=== PATIENT | female | born 1965 | race Caucasian/White ===

== ENCOUNTER 2020-11-13 01:18 | Inpatient (IN) ==
[2020-11-13] MEDS ORDERED: ONDANSETRON 4 MG/2 ML VIAL IV PRN ×2 (01:34→06:04)
[2020-11-13] MEDS: HYDROCODONE/APAP 7.5/325MG TABLET PO PRN ×2 (02:58→13:09)
[2020-11-13] MEDS ORDERED: HYDROCODONE/APAP 7.5/325MG TABLET PO ONE (02:59)
[2020-11-13] MEDS ORDERED: POTASSIUM CHLORIDE 20 MEQ PACKET PO PRN (06:04)
[2020-11-13] MEDS ORDERED: ONDANSETRON 4 MG ODT TABLET SL PRN (06:04)
[2020-11-13] MEDS ORDERED: POLYETHYLENE GLYCOL 3350 17 GM PACKET PO PRN (06:04)
[2020-11-13] MEDS ORDERED: traMADol 50 MG TABLET PO PRN (06:04)
[2020-11-13] MEDS ORDERED: DEXTROSE 50% 50 ML VIAL IV PRN (06:04)
[2020-11-13] MEDS ORDERED: DEXTROSE 31 GM ORAL.SUSP PO PRN (06:04)
[2020-11-13] MEDS ORDERED: BISACODYL 10 MG SUPP.RECT PR PRN (06:04)
[2020-11-13] MEDS ORDERED: hydrALAZINE 20 MG/ML VIAL IV PRN (06:04)
[2020-11-13] MEDS ORDERED: ACETAMINOPHEN 650 MG/65 ML BAG IV PRN (06:04)
--- NOTE | 2020-11-13 06:09 | Internal Med History&Physical ---
HPI History of Present Illness Patient information: Note initiated : 11/13/20 at 6:09 am Service Date, if different from initiated Date: [] Patient: Patricia Guerra a 55 y/o F admitted on 11/13/20 for Diabetic Right Foot Ulcer. Chief Complaint: Right great toe pain History of present illness: Ms. Guerra is a 55 year old F known diabetic who is currently homeless and living in a tent. Patient presented to [facility] ER for worsening right foot and big toe pain after she stepped on a glass sometime ago. She does not have access to protective footwear and moves around in flip-flops. She feels she stubbed on something that started the pain and swelling of the feet. She is known diabetic but poorly controlled and does not take any medications. She follows up with [facility] intermittently. Over the last couple of days pain and swelling has remarkably worsened with bluish discoloration of toe significance redness involving the foot. Initial work-up in the ER was consistent with severely swollen right great toe along with open wound on the dorsal aspect, sodium 126, potassium 3, creatinine 1.4, blood sugar 203 and a white count of 18.1. Patient was started on Rocephin after cultures were drawn. Due to lack of availability of beds hospitalist service was consulted at [facility] for transfer and further management. I received a phone description as above from Jonathan Bender ER physician at [facility]. Patient received at [facility] in stable state. At the time of my evaluation patient is alert and oriented. She endorses history as above. She denies fever, diarrhea, shaking chills, headache, photophobia. She extremely unkempt and appears disheveled. Review of systems 10 point review system was performed and is negative except for ones discussed above MEDS/ALLERGIES Home Medications and Allergies Home Medications Medication Instructions Recorded Confirmed Type No Known Home Meds 11/13/20 11/13/20 History Allergies Allergy/AdvReac Type Severity Reaction Status Date / Time No Known Drug Allergies Allergy Verified 11/13/20 03:07 EXAM Constitutional Vitals: Temp Pulse Resp BP Pulse Ox 98.7 F 107 H 16 135/80 95 11/13/20 02:32 11/13/20 02:32 11/13/20 02:32 11/13/20 02:32 11/13/20 02:32 Disheveled and unkempt Head normocephalic Oral cavity moist No ear or nose discharge Eye no subconjunctival pallor, movement symmetrical S1-S2 occasionally irregular Nonlabored breathing Nondistended pendulous nontender abdomen Right great toe dusky discoloration with erythema extending to midfoot. Dorsalis pedis pulse felt, left foot hyperkeratotic with callus and ulceration plantar aspect Skin otherwise no suspicious lesion Psych anxious but no hallucination Neuro normal higher function on limited neuro exam DATA Data Completed and Pending Labs: Labs from last 24 hours 11/13/20 11/13/20 05:08 05:08 WBC Pending RBC Pending Hgb Pending Hct Pending MCV Pending MCH Pending MCHC Pending RDW Pending Plt Count Pending MPV Pending Neut % (Auto) Pending Sodium Pending Potassium Pending Chloride Pending Carbon Dioxide Pending Anion Gap Pending BUN Pending Creatinine Pending GFR Calculation Pending Glucose Pending Uric Acid Pending Calcium Pending Phosphorus Pending Magnesium Pending Total Bilirubin Pending Direct Bilirubin Pending GGT Pending AST Pending ALT Pending Alkaline Phosphatase Pending Lactate Dehydrogenase Pending Total Protein Pending Albumin Pending Globulin Pending Albumin/Globulin Ratio Pending Triglycerides Pending A/P Narrative A/P Narrative: * Diabetic right foot cellulitis/ulcer-wound care/podiatry consult. * Severe sepsis with endorgan dysfunction White count 18.4. Start antibiotic coverage on Rocephin/vancomycin. Sepsis management guidelines * Mild GENARO top diabetic kidney disease-creatinine 1.4 * Hyponatremia check urine serum osmolarity * Hypokalemia-replace as indicated * Poorly controlled diabetes-start sliding scale insulin/CC diet * Self-care deficit/homelessness-PT OT/case management consultation for safe discharge plan * Prophylaxis Heparin Plan * Inpatient admission * Antibiotic coverage * Podiatry/wound care consult * Monitor renal function * Urine serum osmolality * Electrolyte replacement * Pre-existing medical condition management home medication * PT OT nutrition support Time Spent With Patient Time: Total time spent is greater than 50% in coordination of care (as documented) at patient's floor/unit and/or counseling patient: QUALITY VTE Deep Vein Thrombosis/Pulmonary Embolism Present on Admission: No
[2020-11-13] MEDS ORDERED: VANCOMYCIN PER PHARMACY IV SCH (06:15)
[2020-11-13 06:40] LABS: Basophils # (Auto) 0.04 K/mcL (0.00-0.20); Basophils % (Auto) 0.3 % (0.0-2.0); Eosinophils # (Auto) 0.33 K/mcL (0.00-0.70); Eosinophils % (Auto) 2.1 % (0.0-7.0); Hematocrit 32.9 % (36.0-48.0); Hemoglobin 11.4 g/dL (12.0-15.0); Lymphocytes # (Auto) 1.22 K/mcL (1.50-4.80); Lymphocytes % (Auto) 7.9 % (15.0-49.0); Mean Cell Volume 95.6 fL (80.0-100.0); Mean Corpuscular HGB Conc 34.7 g/dL (31.0-36.0); Mean Platelet Volume 10.6 fL (7.4-10.4); Monocytes # (Auto) 1.66 K/mcL (0.10-0.90); Monocytes % (Auto) 10.8 % (1.0-12.0); Neutrophils % (Auto) 78.9 % (38.0-78.0); Platelet Count 242 K/mcL (140-440); RBC 3.44 M/mcL (4.00-5.20); Red Cell Distribution Width 11.9 % (11.5-14.5); WBC 15.4 K/mcL (4.5-11.0)
[2020-11-13] MEDS: 0.9 % SODIUM CHLORIDE 1,000 ML IV SCH (06:53)
[2020-11-13] MEDS: INSULIN GLARGINE, HUMAN 1 UNIT/0.01 ML SQ SCH (08:21)
[2020-11-13] MEDS: INSULIN LISPRO 1 UNIT/0.01 ML UNIT SQ SCH ×4 (08:21→21:24)
[2020-11-13] MEDS: CYANOCOBALAMIN (VITAMIN B-12) 500 MCG TABLET PO SCH ×2 (08:22→21:24)
[2020-11-13] MEDS: cefTRIAXone 2 GM in DEXTROSE 5% IN WATER 50 ML IV SCH (08:22)
[2020-11-13] MEDS: THIAMINE 100 MG TABLET PO SCH (08:22)
[2020-11-13] MEDS: sitaGLIPtin 100 MG TABLET PO SCH (08:22)
[2020-11-13] MEDS: MULTIVIT,THER IRON,CA,FA & MIN 1 TABLET PO SCH (08:22)
[2020-11-13] MEDS: HEPARIN 5,000 UNIT/ML VIAL SQ SCH ×2 (08:22→21:23)
[2020-11-13 08:31] LABS: ALT/SGPT 35 U/L (<40); AST/SGOT 86 U/L (<32); Albumin 2.3 gm/dL (3.2-5.2); Albumin/Globulin Ratio 0.5 (1.0-2.3); Alkaline Phosphatase 193 U/L (39-117); Bilirubin,Direct 0.5 mg/dL (<0.3); Bilirubin,Total 0.7 mg/dL (0.1-1.0); Blood Urea Nitrogen 20 mg/dL (6-20); Calcium 7.7 mg/dL (8.6-10.4); Carbon Dioxide 22 mmol/L (22-30); Chloride 95 mmol/L (96-108); Globulin 4.2 gm/dL (2.2-3.7); Glomerular Filtration Rate 57; Glucose 186 mg/dL (70-105); Lactate Dehydrogenase 259 U/L (135-225); Phosphorous 3.2 mg/dL (2.5-4.5); Triglycerides 193 mg/dL (<150)
--- NOTE | 2020-11-13 09:50 | XRay Report ---
CLINICAL INFORMATION: cellulitis, osteo COMPARISON: None. FINDINGS: No specific radiographic evidence for osteomyelitis. Slight hallux valgus and minimal hammertoe deformities second through fifth digits noted. Mild degenerative change seen in the second through fifth interphalangeal joints. Remote avulsion fracture of the tip of the medial malleolus noted. There is spurring the anterior tibial plafond and the adjacent anterior talar neck. Minor spurring of the plantar tendon insertion on calcaneus noted. Diffuse soft tissue swelling present within the forefoot and midfoot IMPRESSION: 1. Diffuse forefoot and midfoot soft tissue swelling compatible cellulitis. No specific evidence for osteomyelitis. 2. Mild hallux valgus and hammertoe deformities first through fifth digits. 3. Spurring from the anterior tibial plafond and the adjacent anterior cortex talar neck predisposing to anterior impingement on ankle dorsiflexion. 4. Mild degeneration second through fifth interphalangeal joints Interpreted and Authenticated by: Fermín Tai 11/13/20
[2020-11-13] MEDS: VANCOMYCIN 1,250 MG in 0.9 % SODIUM CHLORIDE 500 ML IV SCH ×2 (10:03→21:24)
--- NOTE | 2020-11-13 12:45 | Internal Med Progress Note ---
SUBJECTIVE Subjective Patient information: Note initiated : 11/13/20 at 12:39 pm Service Date, if different from initiated Date: [] Patient: Patricia Guerra 55 y/o F admitted on 11/13/20 for Diabetic Right Foot Ulcer. Chief Complaint: [] Interval history: History of present illness: Ms. Guerra is a 55 year old F known diabetic who is currently homeless and living in a tent. Patient presented to [facility] ER for worsening right foot and big toe pain after she stepped on a glass sometime ago. She does not have access to protective footwear and moves around in flip-flops. She feels she stubbed on something that started the pain and swelling of the feet. She is known diabetic but poorly controlled and does not take any medications. She follows up with [facility] intermittently. Over the last couple of days pain and swelling has remarkably worsened with bluish discoloration of toe significance redness involving the foot. Initial work-up in the ER was consistent with severely swollen right great toe along with open wound on the dorsal aspect, sodium 126, potassium 3, creatinine 1.4, blood sugar 203 and a white count of 18.1. Patient was started on Rocephin after cultures were drawn. Due to lack of availability of beds hospitalist service was consulted at [facility] for transfer and further management. I received a phone description as above from Jonathan Bender ER physician at [facility]. Patient received at [facility] in stable state. At the time of my evaluation patient is alert and oriented. She endorses history as above. She denies fever, diarrhea, shaking chills, headache, photophobia. She extremely unkempt and appears disheveled. 11/14 Constitutional Vitals: Vital Signs Temp Pulse Resp BP Pulse Ox 97.7 F 93 H 20 124/70 97 11/13/20 11:47 11/13/20 11:47 11/13/20 11:47 11/13/20 11:47 11/13/20 11:47 Period Temp Pulse Resp BP Sys/Patel Pulse Ox Last 24 Hr 97.7 F-98.7 F 92-107 16-20 117-135/70-80 95-97 Intake and Output 11/12/20 11/13/20 11/13/20 21:59 05:59 13:59 Intake Total 800 Output Total 200 Balance -200 800 Weight 83.234 kg Intake & Output: Intake & Output 11/12/20 11/13/20 11/13/20 21:59 05:59 13:59 Intake Total 800 Output Total 200 Balance -200 800 Weight 83.234 kg Intake: Oral 800 Output: Void Amount 200 Other: Meal Lunch Percent of Meal Consumed 100% Feeding Ability Independent Exam: general: Alert, Awake, No acute Distress Eyes/N/T: EOMI, Head/Neck: neck supple, CV: No murmurs, Pulm: Clear b/l, no wheezing/rhonchi/rales Abd: soft, nontender, +BS x4 Ext: no clubbing/cyanosis/edema. right great toe in dressings Neuro: Alert, no focal deficits, moves all extremities, Skin: warm/dry OBJ DATA Labs CBC & Chem 7: 11/13/20 05:08 11/13/20 05:08 Labs: Abnormal Lab Results 11/13/20 11/13/20 11/13/20 05:08 05:08 05:08 WBC RBC Hgb Hct MPV Neut % (Auto) Lymph % (Auto) Lymph # (Auto) [place] # (Auto) Absolute Neutrophils ESR 90 H Sodium Potassium Chloride Glucose Calcium Magnesium Direct Bilirubin GGT AST Alkaline Phosphatase Lactate Dehydrogenase C-Reactive Protein 22.80 H Albumin Globulin Albumin/Globulin Ratio Triglycerides Procalcitonin 1.45 H 11/13/20 11/13/20 05:08 05:08 WBC 15.4 H RBC 3.44 L Hgb 11.4 L Hct 32.9 L MPV 10.6 H Neut % (Auto) 78.9 H Lymph % (Auto) 7.9 L Lymph # (Auto) 1.22 L [place] # (Auto) 1.66 H Absolute Neutrophils 12.16 H ESR Sodium 129 L Potassium 2.9 L* Chloride 95 L Glucose 186 H Calcium 7.7 L Magnesium 1.3 L Direct Bilirubin 0.5 H GGT 438 H AST 86 H Alkaline Phosphatase 193 H Lactate Dehydrogenase 259 H C-Reactive Protein Albumin 2.3 L Globulin 4.2 H Albumin/Globulin Ratio 0.5 L Triglycerides 193 H Procalcitonin Meds: Medications Acetaminophen (Acetaminophen 325 Mg Tablet) 650 mg PO Q4-6HP PRN; Protocol PRN Reason: Per Pain Protocol/Fever > 101 Hydrocodone Bitart/Acetaminophen (Hydrocodone/Apap 7.5/325mg Tablet) 1 tab PO Q4HP PRN; Protocol PRN Reason: Per Pain Protocol Last Admin: 11/13/20 02:58 Dose: 1 tab Documented by: Bisacodyl (Bisacodyl 10 Mg Supp.Rect) 10 mg TN Q2-3DAYS PRN PRN Reason: Constipation Cyanocobalamin (Cyanocobalamin (Vitamin B-12) 500 Mcg Tablet) 1,000 mcg PO BID [facility] Stop: 11/17/20 21:01 Last Admin: 11/13/20 08:22 Dose: 1,000 mcg Documented by: Dextrose (Dextrose 50% 50 Ml Vial) 0 ml IV UD PRN PRN Reason: Hypoglycemia Diagnostic Test (Pha) (Accu-Chek 1 Each Strip) 1 each FS ACHS [facility] Last Admin: 11/13/20 11:23 Dose: 1 each Documented by: Diagnostic Test (Pha) (Accu-Chek 1 Each Strip) 1 each FS ACHS [facility] Last Admin: 11/13/20 11:24 Dose: Not Given Documented by: Glucose (Dextrose 31 Gm Oral.Susp) 15 gm PO PRN PRN PRN Reason: Hypoglycemia Heparin Sodium (Porcine) (Heparin 5,000 Unit/Ml Vial) 5,000 unit SQ Q12 [facility] Last Admin: 11/13/20 08:22 Dose: 5,000 unit Documented by: Hydralazine HCl (Hydralazine 20 Mg/Ml Vial) 10 mg IV Q4-6HP PRN PRN Reason: Hypertension Acetaminophen (Ofirmev) 650 mg in 65 mls @ 130 mls/hr IV Q6HP PRN; Protocol PRN Reason: Per Pain Protocol/Fever > 101 Magnesium Sulfate (Magnesium Sulfate) 2 gm in 50 mls @ 50 mls/hr IV UD PRN PRN Reason: MG = or < 1.7 Sodium Chloride (Sodium Chloride 0.9%) 1,000 mls @ 50 mls/hr IV .Q20H [facility] Stop: 11/15/20 18:14 Last Admin: 11/13/20 06:53 Dose: 50 mls/hr Documented by: Ceftriaxone Sodium 2 gm/ (Dextrose) 50 mls @ 100 mls/hr IV DAILY [facility]; Protocol Last Admin: 11/13/20 08:22 Dose: 100 mls/hr Documented by: Vancomycin HCl 1,250 mg/ (Sodium Chloride) 500 mls @ 333.3 mls/hr IV Q12H [facility] Last Admin: 11/13/20 10:03 Dose: 333.3 mls/hr Documented by: Insulin Glargine (Insulin Glargine, Human 1 Unit/0.01 Ml) 10 unit SQ DAILY [facility] Last Admin: 11/13/20 08:21 Dose: 10 units Documented by: Insulin Human Lispro (Insulin Lispro 1 Unit/0.01 Ml Unit) 0 unit SQ ACHS [facility]; Protocol Last Admin: 11/13/20 11:27 Dose: 2 units Documented by: Iron Carb/Multivit/[place]/Folic Acid (Multivit,Ther Iron,Ca,Fa & Min 1 Tablet) 1 tab PO DAILY [facility] Last Admin: 11/13/20 08:22 Dose: 1 tab Documented by: Melatonin (Melatonin 3 Mg Tablet) 3 mg PO HSP PRN PRN Reason: Insomnia Ondansetron HCl (Ondansetron 4 Mg Odt Tablet) 4 mg SL Q4-6HP PRN; Protocol PRN Reason: Nausea And Vomiting Ondansetron HCl (Ondansetron 4 Mg/2 Ml Vial) 4 mg IV Q4-6HP PRN; Protocol PRN Reason: Nausea And Vomiting Pneumococcal Polyvalent Vaccine (Pneumococcal 23-Trupti P-Sac Vac 0.5 Ml Syringe) 0.5 ml IM .ONCE ONE Stop: 11/14/20 10:01 Polyethylene Glycol (Polyethylene Glycol 3350 17 Gm Packet) 17 gm PO DAILYP PRN PRN Reason: Constipation Potassium Chloride (Potassium Chloride 20 Meq Packet) 40 meq PO DAILYP PRN PRN Reason: K+ < 3.5 Last Admin: 11/13/20 08:37 Dose: 40 meq Documented by: Senna/Docusate Sodium (Sennosides/Docusate Sodium 1 Tab Tablet) 1 tab PO HS [facility] Sitagliptin Phosphate (Sitagliptin 100 Mg Tablet) 100 mg PO DAILY [facility] Last Admin: 11/13/20 08:22 Dose: 100 mg Documented by: Sodium Chloride (0.9 % Sodium Chloride 10 Ml Syringe) 10 ml IV Q8 GUILLERMO Thiamine HCl (Thiamine 100 Mg Tablet) 100 mg PO DAILY [facility] Last Admin: 11/13/20 08:22 Dose: 100 mg Documented by: Vancomycin HCl (Vancomycin Per Pharmacy) 1 order IV UD [facility]; Protocol A/P Narrative A/P Narrative: A: *Diabetic right foot cellulitis/ulcer: *severe sepsis with endorgan dysfunction: -White count 18.4. *GENARO with diabetic kidney disease (unknown baseline): *Hyponatremia: *Hypokalemia: *DM, Poorly controlled diabetes -A1c 9.7 *Self-care deficit/homelessness-PT OT/case management consultation for safe discharge plan Plan: -Antibiotic coverage -Ata/wound care consult -Monitor renal function -Urine serum osmolality -Electrolyte replacement -SSI -PT OT nutrition support -ppx: heparin Time Spent With Patient Time: Total time spent is greater than 50% in coordination of care (as do cumented) at patient's floor/unit and/or counseling patient: QUALITY VTE Deep Vein Thrombosis/Pulmonary Embolism Present on Admission: No
[2020-11-13] MEDS: MAGNESIUM SULFATE 2 GM/50 ML BAG IV PRN (13:01)
--- NOTE | 2020-11-13 13:38 | General Surgery Consult Note ---
HPI Consult Narrative Chief complaint: SEPSIS, CSSSI Right great toe. Uncontrolled DM Reason for consult: Evaluation and treatment. History of present illness: This patient was initially evaluated at [facility] for sepsis, due to skin and soft tissue infection of RIGHT great toe. She complains of dull pain over the swollen toe with epidermal ulceration and discoloration of skin. DENIES F/C/R/N/V/GARNETT/vision abnormality CVS, RS symptoms. She has DM and peripheral neuropathy. Patient was seen in ER for an infected Right great toe for some time. She is ? homeless, and walking bare footed. Likely stepped on some sharp object and sustained trauma. Noted to have leucocytosis, hyperglycemia, GENARO, elevated CRP and procalcitonin. Admitted for further work up and treatment. cc:: CC: Tanner Sanders MEDS/ALLERGIES Home Medications and Allergies Home Medications Medication Instructions Recorded Confirmed Type No Known Home Meds 11/13/20 11/13/20 History Allergies Allergy/AdvReac Type Severity Reaction Status Date / Time No Known Drug Allergies Allergy Verified 11/13/20 03:07 Physical Examination Vital Signs Vital signs: Temp Pulse Resp BP Pulse Ox 97.7 F 93 H 20 124/70 97 11/13/20 11:47 11/13/20 11:47 11/13/20 11:47 11/13/20 11:47 11/13/20 11:47 General physical appearance General physical exam: well developed, well nourished, no distress and no pain Eyes Eye exam: PERRL and normal ocular movement ENT ENT exam: normal pinna, normal mucosa and no congestion Head Head exam IM: Present atraumatic and normocephalic Neck Neck exam: no masses and no venous distension Cardiovascular Cardiovascular exam IM: Present normal rate and rhythm Respiratory Respiratory exam: normal expansion and clear to auscultation Abdomen Abdomen: Present soft, non tender and bowel sounds Integumentary Integumentary: Present other (RIGHT great toe with soft tissue edema, discolration, callositiy and epidermal stage 1 ulcers over dorsal and plantar surface, and thick deformed mycotic toenails.) Neurologic Neurologic: Present other (Moves all extremities and ambulates without ataxia. Cranial nerves are normal. She has diabetic neuropathy, ) Musculoskeletal Musculoskeletal: Present other (Deformed thick funagl toenails both feet. ) Psychiatric Psychiatric: Present oriented to time, oriented to person, oriented to place and speech is normal Results Labs Result diagrams: 11/14/20 05:08 11/14/20 05:08 Labs: Abnormal lab results 11/13/20 11/13/20 11/13/20 Range/Units 05:08 05:08 05:08 WBC 15.4 H (4.5-11.0) K/mcL RBC 3.44 L (4.00-5.20) M/mcL Hgb 11.4 L (12.0-15.0) g/dL Hct 32.9 L (36.0-48.0) % MPV 10.6 H (7.4-10.4) fL Neut % (Auto) 78.9 H (38.0-78.0) % Lymph % (Auto) 7.9 L (15.0-49.0) % Lymph # (Auto) 1.22 L (1.50-4.80) K/mcL [place] # (Auto) 1.66 H (0.10-0.90) K/mcL Absolute Neutrophils 12.16 H (1.80-8.00) K/mcL ESR (0-20) mm/hr Sodium 129 L (133-145) mmol/L Potassium 2.9 L* (3.3-5.1) mmol/L Chloride 95 L (96-108) mmol/L Glucose 186 H (70-105) mg/dL Calcium 7.7 L (8.6-10.4) mg/dL Magnesium 1.3 L (1.6-2.5) mg/dL Direct Bilirubin 0.5 H (<0.3) mg/dL GGT 438 H (5-36) U/L AST 86 H (<32) U/L Alkaline Phosphatase 193 H (39-117) U/L Lactate Dehydrogenase 259 H (135-225) U/L C-Reactive Protein 22.80 H (0.03-0.80) mg/dL Albumin 2.3 L (3.2-5.2) gm/dL Globulin 4.2 H (2.2-3.7) gm/dL Albumin/Globulin Ratio 0.5 L (1.0-2.3) Triglycerides 193 H (<150) mg/dL Procalcitonin (<0.10) ng/mL 11/13/20 11/13/20 Range/Units 05:08 05:08 WBC (4.5-11.0) K/mcL RBC (4.00-5.20) M/mcL Hgb (12.0-15.0) g/dL Hct (36.0-48.0) % MPV (7.4-10.4) fL Neut % (Auto) (38.0-78.0) % Lymph % (Auto) (15.0-49.0) % Lymph # (Auto) (1.50-4.80) K/mcL [place] # (Auto) (0.10-0.90) K/mcL Absolute Neutrophils (1.80-8.00) K/mcL ESR 90 H (0-20) mm/hr Sodium (133-145) mmol/L Potassium (3.3-5.1) mmol/L Chloride (96-108) mmol/L Glucose (70-105) mg/dL Calcium (8.6-10.4) mg/dL Magnesium (1.6-2.5) mg/dL Direct Bilirubin (<0.3) mg/dL GGT (5-36) U/L AST (<32) U/L Alkaline Phosphatase (39-117) U/L Lactate Dehydrogenase (135-225) U/L C-Reactive Protein (0.03-0.80) mg/dL Albumin (3.2-5.2) gm/dL Globulin (2.2-3.7) gm/dL Albumin/Globulin Ratio (1.0-2.3) Triglycerides (<150) mg/dL Procalcitonin 1.45 H (<0.10) ng/mL Diabetes panel 11/13/20 Range/Units 05:08 Sodium 129 L (133-145) mmol/L Potassium 2.9 L* (3.3-5.1) mmol/L Chloride 95 L (96-108) mmol/L Carbon Dioxide 22 (22-30) mmol/L BUN 20 (6-20) mg/dL Creatinine 1.1 (0.6-1.1) mg/dL Glucose 186 H (70-105) mg/dL Calcium 7.7 L (8.6-10.4) mg/dL AST 86 H (<32) U/L ALT 35 (<40) U/L Alkaline Phosphatase 193 H (39-117) U/L Total Protein 6.5 (5.9-8.4) gm/dL Albumin 2.3 L (3.2-5.2) gm/dL Triglycerides 193 H (<150) mg/dL Calcium panel 11/13/20 Range/Units 05:08 Calcium 7.7 L (8.6-10.4) mg/dL Phosphorus 3.2 (2.5-4.5) mg/dL Albumin 2.3 L (3.2-5.2) gm/dL Pituitary panel 11/13/20 Range/Units 05:08 Sodium 129 L (133-145) mmol/L Potassium 2.9 L* (3.3-5.1) mmol/L Chloride 95 L (96-108) mmol/L Carbon Dioxide 22 (22-30) mmol/L BUN 20 (6-20) mg/dL Creatinine 1.1 (0.6-1.1) mg/dL Glucose 186 H (70-105) mg/dL Calcium 7.7 L (8.6-10.4) mg/dL Adrenal panel 11/13/20 Range/Units 05:08 Sodium 129 L (133-145) mmol/L Potassium 2.9 L* (3.3-5.1) mmol/L Chloride 95 L (96-108) mmol/L Carbon Dioxide 22 (22-30) mmol/L BUN 20 (6-20) mg/dL Creatinine 1.1 (0.6-1.1) mg/dL Glucose 186 H (70-105) mg/dL Calcium 7.7 L (8.6-10.4) mg/dL Total Bilirubin 0.7 (0.1-1.0) mg/dL AST 86 H (<32) U/L ALT 35 (<40) U/L Alkaline Phosphatase 193 H (39-117) U/L Total Protein 6.5 (5.9-8.4) gm/dL Albumin 2.3 L (3.2-5.2) gm/dL All other labs normal. A/P Narrative A/P Narrative: Assessment: INITIAL encounter. CSSSI Right great toe without osteomyelitis, cellulitis or gas is soft tissues on X RAY Elevated CRP and Procalcitonin. Plan: R/O MRSA carrier status LOCAL WOUND CARE Continue with IV antibiotics for now. Medical management of comorbid conditions by Hospitalist Physician, Following patient and will make further recommendations as condition evolves. Patient will benefit by CM or SW evaluation for continuation of care after discharge, Discussed with Trixie RN, Nurse IC. Time Spent With Patient Time: Total time spent is greater than 50% in coordination of care (as documented) at patient's floor/unit and/or counseling patient: Total time spent with greater than 50% in coordination of care (as documented) at patient's floor/unit and/or counseling patient:: Greater than 35 minutes
[2020-11-13 14:18] LABS: Hemoglobin A1C 9.7 % Hgb (4.0-6.0)
[2020-11-13] MEDS: 0.9 % SODIUM CHLORIDE 10 ML SYRINGE IV SCH ×2 (14:54→21:12)
[2020-11-13] MEDS: SENNOSIDES/DOCUSATE SODIUM 1 TAB TABLET PO SCH (21:12)
[2020-11-13] MEDS: MUPIROCIN OINT 2% 22GM TOPICAL SCH (22:14)
[2020-11-14] MEDS: HYDROCODONE/APAP 7.5/325MG TABLET PO PRN (00:52)
[2020-11-14] MEDS: 0.9 % SODIUM CHLORIDE 1,000 ML IV SCH ×2 (06:31→23:59)
[2020-11-14] MEDS: 0.9 % SODIUM CHLORIDE 10 ML SYRINGE IV SCH ×3 (06:32→20:58)
--- NOTE | 2020-11-14 07:12 | Internal Med Progress Note ---
SUBJECTIVE Subjective Patient information: Note initiated : 11/14/20 at 7:07 am Service Date, if different from initiated Date: [] Patient: Patricia Guerra a 55 y/o F admitted on 11/13/20 for Diabetic Right Foot Ulcer. Chief Complaint: [] Interval history: History of present illness: Ms. Guerra is a 55 year old F known diabetic who is currently homeless and living in a tent. Patient presented to [facility] ER for worsening right foot and big toe pain after she stepped on a glass sometime ago. She does not have access to protective footwear and moves around in flip-flops. She feels she stubbed on something that started the pain and swelling of the feet. She is known diabetic but poorly controlled and does not take any medications. She follows up with [facility] clinic intermittently. Over the last couple of days pain and swelling has remarkably worsened with bluish discoloration of toe significance redness involving the foot. Initial work-up in the ER was consistent with severely swollen right great toe along with open wound on the dorsal aspect, sodium 126, potassium 3, creatinine 1.4, blood sugar 203 and a white count of 18.1. Patient was started on Rocephin after cultures were drawn. Due to lack of availability of beds hospitalist service was consulted at [facility] for transfer and further management. I received a phone description as above from Jonathan Bender ER physician at [facility]. Patient received at [facility] in stable state. At the time of my evaluation patient is alert and oriented. She endorses h istory as above. She denies fever, diarrhea, shaking chills, headache, photophobia. She extremely unkempt and appears disheveled. 11/[address] Berumen. Patient has no overnight event or new complaints. She is homeless and ran out of her medications months ago and has not been on any for quite a while. Nurse attempting to obtain old medication list. Sounds like she was on insulin. Review of Systems: denies headache/fever/chills/nausea/vomiting/chest or abdominal pain/cough/dyspnea/diarrhea. Otherwise see above. Constitutional Vitals: Vital Signs Temp Pulse Resp BP Pulse Ox 97.9 F 85 18 113/70 94 11/14/20 03:26 11/14/20 03:26 11/14/20 03:26 11/14/20 03:26 11/14/20 03:26 Period Temp Pulse Resp BP Sys/Patel Pulse Ox Last 24 Hr 97.7 F-98.8 F 85-99 16-20 113-149/70-91 94-99 Intake and Output 11/13/20 11/14/20 11/14/20 21:59 05:59 13:59 Intake Total 530 980 Output Total 350 900 Balance 180 80 Weight 86.438 kg Intake & Output: Intake & Output 11/13/20 11/14/20 11/14/20 21:59 05:59 13:59 Intake Total 530 980 Output Total 350 900 Balance 180 80 Weight 86.438 kg Intake: IV 50 500 Vancomycin 1,250 mg In Sodium 500 Chloride 0.9% 500 ml @ 333.3 mls/hr IV Q12H [facility] Rx#: [id number] Oral 480 480 Output: Void Amount 350 900 Other: Meal Dinner Percent of Meal Consumed 100% Feeding Ability Independent Urine Appearance Sediment Sediment Urine Color Light Patsy Dark Yellow Urine Odor Normal Strong # Voids 3 Exam: general: Alert, Awake, No acute Distress Eyes/N/T: EOMI, Head/Neck: neck supple, CV: No murmurs, Pulm: Clear b/l, no wheezing/rhonchi/rales Abd: soft, nontender, +BS x4 Ext: no clubbing/cyanosis/edema. right great toe in dressings Neuro: Alert, no focal deficits, moves all extremities, Skin: warm/dry OBJ DATA Labs CBC & Chem 7: 11/14/20 05:08 11/14/20 05:08 Labs: Abnormal Lab Results 11/13/20 11/13/20 11/13/20 05:08 05:08 05:08 WBC RBC Hgb Hct MPV Neut % (Auto) Lymph % (Auto) Lymph # (Auto) [place] # (Auto) Absolute Neutrophils ESR 90 H Sodium Potassium Chloride Glucose Hemoglobin A1c 9.7 H Calcium Magnesium Direct Bilirubin GGT AST Alkaline Phosphatase Lactate Dehydrogenase C-Reactive Protein Albumin Globulin Albumin/Globulin Ratio Triglycerides Procalcitonin 1.45 H 11/13/20 11/13/20 11/13/20 05:08 05:08 05:08 WBC 15.4 H RBC 3.44 L Hgb 11.4 L Hct 32.9 L MPV 10.6 H Neut % (Auto) 78.9 H Lymph % (Auto) 7.9 L Lymph # (Auto) 1.22 L [place] # (Auto) 1.66 H Absolute Neutrophils 12.16 H ESR Sodium 129 L Potassium 2.9 L* Chloride 95 L Glucose 186 H Hemoglobin A1c Calcium 7.7 L Magnesium 1.3 L Direct Bilirubin 0.5 H GGT 438 H AST 86 H Alkaline Phosphatase 193 H Lactate Dehydrogenase 259 H C-Reactive Protein 22.80 H Albumin 2.3 L Globulin 4.2 H Albumin/Globulin Ratio 0.5 L Triglycerides 193 H Procalcitonin Meds: Medications Acetaminophen (Acetaminophen 325 Mg Tablet) 650 mg PO Q4-6HP PRN; Protocol PRN Reason: Per Pain Protocol/Fever > 101 Hydrocodone Bitart/Acetaminophen (Hydrocodone/Apap 7.5/325mg Tablet) 1 tab PO Q4HP PRN; Protocol PRN Reason: Per Pain Protocol Last Admin: 11/14/20 00:52 Dose: 1 tab Documented by: Bisacodyl (Bisacodyl 10 Mg Supp.Rect) 10 mg IL Q2-3DAYS PRN PRN Reason: Constipation Cyanocobalamin (Cyanocobalamin (Vitamin B-12) 500 Mcg Tablet) 1,000 mcg PO BID [facility] Stop: 11/17/20 21:01 Last Admin: 11/13/20 21:24 Dose: 1,000 mcg Documented by: Dextrose (Dextrose 50% 50 Ml Vial) 0 ml IV UD PRN PRN Reason: Hypoglycemia Diagnostic Test (Pha) (Accu-Chek 1 Each Strip) 1 each FS ACHS [facility] Last Admin: 11/13/20 21:12 Dose: Not Given Documented by: Glucose (Dextrose 31 Gm Oral.Susp) 15 gm PO PRN PRN PRN Reason: Hypoglycemia Heparin Sodium (Porcine) (Heparin 5,000 Unit/Ml Vial) 5,000 unit SQ Q12 [facility] Last Admin: 11/13/20 21:23 Dose: 5,000 unit Documented by: Hydralazine HCl (Hydralazine 20 Mg/Ml Vial) 10 mg IV Q4-6HP PRN PRN Reason: Hypertension Acetaminophen (Ofirmev) 650 mg in 65 mls @ 130 mls/hr IV Q6HP PRN; Protocol PRN Reason: Per Pain Protocol/Fever > 101 Magnesium Sulfate (Magnesium Sulfate) 2 gm in 50 mls @ 50 mls/hr IV UD PRN PRN Reason: MG = or < 1.7 Last Infusion: 11/13/20 14:10 Dose: Infused Documented by: Sodium Chloride (Sodium Chloride 0.9%) 1,000 mls @ 50 mls/hr IV .Q20H [facility] Stop: 11/15/20 18:14 Last Admin: 11/14/20 06:31 Dose: Not Given Documented by: Ceftriaxone Sodium 2 gm/ (Dextrose) 50 mls @ 100 mls/hr IV DAILY [facility]; Protocol Last Infusion: 11/13/20 09:00 Dose: Infused Documented by: Vancomycin HCl 1,250 mg/ (Sodium Chloride) 500 mls @ 333.3 mls/hr IV Q12H [facility] Last Infusion: 11/13/20 23:09 Dose: Infused Documented by: Insulin Glargine (Insulin Glargine, Human 1 Unit/0.01 Ml) 10 unit SQ DAILY [facility] Last Admin: 11/13/20 08:21 Dose: 10 units Documented by: Insulin Human Lispro (Insulin Lispro 1 Unit/0.01 Ml Unit) 0 unit SQ ACHS [facility]; Protocol Last Admin: 11/13/20 21:24 Dose: 2 units Documented by: Iron Carb/Multivit/Redkey/Folic Acid (Multivit,Ther Iron,Ca,Fa & Min 1 Tablet) 1 tab PO DAILY [facility] Last Admin: 11/13/20 08:22 Dose: 1 tab Documented by: Melatonin (Melatonin 3 Mg Tablet) 3 mg PO HSP PRN PRN Reason: Insomnia Mupirocin (Mupirocin Oint 2% 22gm) 1 dose TOPICAL DAILY [facility] Last Admin: 11/13/20 22:14 Dose: 1 dose Documented by: Ondansetron HCl (Ondansetron 4 Mg Odt Tablet) 4 mg SL Q4-6HP PRN; Protocol PRN Reason: Nausea And Vomiting Ondansetron HCl (Ondansetron 4 Mg/2 Ml Vial) 4 mg IV Q4-6HP PRN; Protocol PRN Reason: Nausea And Vomiting Pneumococcal Polyvalent Vaccine (Pneumococcal 23-Trupti P-Sac Vac 0.5 Ml Syringe) 0.5 ml IM .ONCE ONE Stop: 11/14/20 10:01 Polyethylene Glycol (Polyethylene Glycol 3350 17 Gm Packet) 17 gm PO DAILYP PRN PRN Reason: Constipation Potassium Chloride (Potassium Chloride 20 Meq Packet) 40 meq PO DAILYP PRN PRN Reason: K+ < 3.5 Last Admin: 11/13/20 08:37 Dose: 40 meq Documented by: Senna/Docusate Sodium (Sennosides/Docusate Sodium 1 Tab Tablet) 1 tab PO HS [facility] Last Admin: 11/13/20 21:12 Dose: Not Given Documented by: Sitagliptin Phosphate (Sitagliptin 100 Mg Tablet) 100 mg PO DAILY [facility] Last Admin: 11/13/20 08:22 Dose: 100 mg Documented by: Sodium Chloride (0.9 % Sodium Chloride 10 Ml Syringe) 10 ml IV Q8 [facility] Last Admin: 11/14/20 06:32 Dose: Not Given Documented by: Thiamine HCl (Thiamine 100 Mg Tablet) 100 mg PO DAILY [facility] Last Admin: 11/13/20 08:22 Dose: 100 mg Documented by: Vancomycin HCl (Vancomycin Per Pharmacy) 1 order IV UD [facility]; Protocol A/P Narrative A/P Narrative: A: *Diabetic right foot cellulitis/ulcer: *severe sepsis with endorgan dysfunction: -WBC 15>14 *CKD II: *Anemia, likely chronic: *Hyponatremia/kalemia/mag: improved *DM, Poorly controlled diabetes. Has not been on her medications for months. -A1c 9.7 *Self-care deficit/homelessness: *Transaminitis: Likely fatty liver Plan: -on rocephin/vanco -Ata/wound care consult -MRI foot pending -renal u/s -Monitor renal function -Electrolyte replacement -SSI, start on metformin -clarify home meds -PT OT/case management consultation for safe discharge plan-PT OT nutrition support -ppx: heparin DNR Time Spent With Patient Time: Total time spent is greater than 50% in coordination of care (as documented) at patient's floor/unit and/or counseling patient: QUALITY VTE Deep Vein Thrombosis/Pulmonary Embolism Present on Admission: No
[2020-11-14 07:52] LABS: Basophils # (Auto) 0.08 K/mcL (0.00-0.20); Basophils % (Auto) 0.6 % (0.0-2.0); Eosinophils # (Auto) 0.34 K/mcL (0.00-0.70); Eosinophils % (Auto) 2.3 % (0.0-7.0); Hematocrit 34.7 % (36.0-48.0); Hemoglobin 11.9 g/dL (12.0-15.0); Lymphocytes # (Auto) 2.18 K/mcL (1.50-4.80); Mean Cell Volume 97.2 fL (80.0-100.0); Mean Corpuscular HGB Conc 34.3 g/dL (31.0-36.0); Mean Platelet Volume 10.9 fL (7.4-10.4); Monocytes # (Auto) 1.58 K/mcL (0.10-0.90); Monocytes % (Auto) 10.9 % (1.0-12.0); Neutrophils % (Auto) 71.2 % (38.0-78.0); Platelet Count 271 K/mcL (140-440); RBC 3.57 M/mcL (4.00-5.20); WBC 14.5 K/mcL (4.5-11.0)
[2020-11-14] MEDS: INSULIN LISPRO 1 UNIT/0.01 ML UNIT SQ SCH ×4 (07:54→20:57)
[2020-11-14 08:01] LABS: ALT/SGPT 41 U/L (<40); AST/SGOT 75 U/L (<32); Albumin 2.1 gm/dL (3.2-5.2); Albumin/Globulin Ratio 0.6 (1.0-2.3); Alkaline Phosphatase 223 U/L (39-117); Bilirubin,Direct 0.4 mg/dL (<0.3); Bilirubin,Total 0.6 mg/dL (0.1-1.0); Blood Urea Nitrogen 11 mg/dL (6-20); Calcium 7.8 mg/dL (8.6-10.4); Carbon Dioxide 23 mmol/L (22-30); Chloride 100 mmol/L (96-108); Globulin 3.8 gm/dL (2.2-3.7); Glomerular Filtration Rate 83; Glucose 118 mg/dL (70-105); Lactate Dehydrogenase 257 U/L (135-225); Phosphorous 2.6 mg/dL (2.5-4.5); Triglycerides 170 mg/dL (<150); Uric Acid 3.8 mg/dL (2.5-8.0)
[2020-11-14] MEDS: sitaGLIPtin 100 MG TABLET PO SCH (08:56)
[2020-11-14] MEDS: MULTIVIT,THER IRON,CA,FA & MIN 1 TABLET PO SCH (08:57)
[2020-11-14] MEDS: CYANOCOBALAMIN (VITAMIN B-12) 500 MCG TABLET PO SCH ×2 (08:57→20:58)
[2020-11-14] MEDS: HEPARIN 5,000 UNIT/ML VIAL SQ SCH ×2 (08:57→20:57)
[2020-11-14] MEDS: THIAMINE 100 MG TABLET PO SCH (08:57)
[2020-11-14] MEDS: INSULIN GLARGINE, HUMAN 1 UNIT/0.01 ML SQ SCH (08:58)
[2020-11-14] MEDS: cefTRIAXone 2 GM in DEXTROSE 5% IN WATER 50 ML IV SCH (09:04)
[2020-11-14] MEDS ORDERED: MAGNESIUM SULFATE 2 GM/50 ML BAG IV ONE (09:16)
[2020-11-14] MEDS: VANCOMYCIN 1,250 MG in 0.9 % SODIUM CHLORIDE 500 ML IV SCH ×2 (09:53→20:56)
[2020-11-14] MEDS ORDERED: PNEUMOCOCCAL 23-VAL P-SAC VAC 0.5 ML SYRINGE IM ONE (10:00)
[2020-11-14] MEDS: MUPIROCIN OINT 2% 22GM TOPICAL SCH ×2 (10:33→20:57)
--- NOTE | 2020-11-14 10:53 | General Surgery Progress Note ---
SUBJECTIVE Subjective Patient information: Note initiated : 11/14/20 at 10:45 am Service Date, if different from initiated Date: [] Patient: Patricia Guerra 55 y/o F admitted on 11/13/20 for Diabetic Right Foot Ulcer. Chief Complaint: [] Principal diagnosis: Sepsis CSSSI Right great toe. Onycomycosis toenails. Interval history: Patient seen on rounds and progress reviewed with patient and Hospitalist Dr. Dominguez. Patient denies any new symptoms. She had uneventful night. Dressings were changed. Constitutional Vitals: Vital Signs Temp Pulse Resp BP Pulse Ox 98.3 F 85 16 141/92 97 11/14/20 07:56 11/14/20 07:56 11/14/20 07:56 11/14/20 07:56 11/14/20 07:56 Period Temp Pulse Resp BP Sys/Patel Pulse Ox Last 24 Hr 97.7 F-98.8 F 85-99 16-20 113-149/70-92 94-99 Intake and Output 11/13/20 11/14/20 11/14/20 21:59 05:59 13:59 Intake Total 665 991 6793 Output Total 978 549 2576 Balance 180 80 450 Weight 190 lb 9 oz Intake & Output: Intake & Output 11/13/20 11/14/20 11/14/20 21:59 05:59 13:59 Intake Total 633 044 8984 Output Total 962 096 6272 Balance 180 80 450 Weight 190 lb 9 oz Intake: IV 50 500 1050 Sodium Chloride 0.9% 1,000 ml @ 1000 50 mls/hr IV .Q20H [facility] Rx#: [id number] Vancomycin 1,250 mg In Sodium 500 Chloride 0.9% 500 ml @ 333.3 mls/hr IV Q12H [facility] Rx#: [id number] Rocephin 2 gm In Dextrose 5% in 50 Water 50 ml @ 100 mls/hr IV DAILY [facility] Rx#:[id number] Oral 480 480 400 Output: Void Amount 600 092 2260 Other: Meal Dinner Breakfast Percent of Meal Consumed 100% 100% Feeding Ability Independent Independent Urine Appearance Sediment Sediment Sediment Urine Color Light Patsy Dark Yellow Dark Patsy Urine Odor Normal Strong Normal # Voids 3 Exam: AVSS. No changes NASIM L/E, Continuing demarcation around nail bed and drained heme serous fluid in interdigital space. Nasal Swab: Negative for MRSA Carrier. Reviewed X Ray findings. A/P Narrative A/P Narrative: Assessment: Ongoing treatment for CSSSI Right great toe with Sepsis and uncontrolled diabetes. Some improvement with ongoing care. Plan: Local wound care to continue. Will reassess again tomorrow. Spoke with patient about possibility for surgical debridement and toe amputationl She understands. Social issues: Lives by herself. Will need assistance post discharge. Time Spent With Patient Time: Total time spent is greater than 50% in coordination of care (as documented) at patient's floor/unit and/or counseling patient: Total time spent with greater than 50% in coordination of care (as documented) at patient's floor/unit and/or counseling patient:: 25 - 35 minutes
[2020-11-14] MEDS: metFORMIN 500 MG TAB.XL.24H PO SCH (12:23)
--- NOTE | 2020-11-14 16:07 | Ultrasound Report ---
CLINICAL INFORMATION: transaminitis COMPARISON: None. FINDINGS: Liver is moderately enlarged with a vertical dimension 18 cm at mid clavicular line. Echotexture is diffusely hyperechoic compatible with fatty change or other diffuse hepatocellular process. No focal hepatic lesions. Gallbladder and bile ducts are normal CBD 7 mm the pancreas not visualized. IMPRESSION: Mildly enlarged hyperechoic liver compatible with fatty change or other diffuse hepatocellular process. Interpreted and Authenticated by: Fermín Tai 11/14/20
[2020-11-14] MEDS: SENNOSIDES/DOCUSATE SODIUM 1 TAB TABLET PO SCH (20:57)
--- NOTE | 2020-11-15 05:28 | Magnetic Resonance Report ---
CLINICAL INFORMATION: Plantar pain plantar ulceration over the great toe. Evaluate for osteomyelitis COMPARISON: Kyle film 11/13/2020 TECHNIQUE: Axial T1-T2 proton-density, coronal proton density T1 sagittal T1 proton-density images were acquired FINDINGS: Exuberant inflammation in the subcutaneous fat and fascia, spanning 3 cm, has encircled the first proximal phalanx. Findings compatible with severe cellulitis and fasciitis. Vague increased intramedullary signal within the first proximal phalanx may represent mild early osteomyelitis or merely edema from adjacent soft tissue inflammation. 10 mm focal region of increased signal in the second metatarsal head, associated with a plantar cortex erosion, likely represent osteomyelitis. A 10 mm degenerative cyst is noted in the central calcaneus. Spurring from the anterior tibial plafond and the adjacent anterior talar neck predispose to anterior impingement on ankle dorsiflexion. There is mild degenerative change in the interphalangeal joints. Moderate amount of fluid is noted within the posterior tibialis flexure hallucis longus and flexor digitorum longus sheaths tendons themselves appear unremarkable. Diffuse cellulitis seen throughout the foot. IMPRESSION: 1. Large region of cellulitis/fasciitis spanning 3.1 cm in the first digit encircling the first proximal phalanx. The underlying proximal phalanx shows increase in intramedullary signal which may indicate mild osteomyelitis or sympathetic edema from adjacent soft tissue inflammation. 2. Diffuse cellulitis and fasciitis throughout the remaining forefoot and midfoot region. This is most prominent in the deep plantar fascia 3. 10 mm focus of increased signal second metatarsal head with plantar erosions. This may represent focal osteomyelitis. 4. Tenosynovitis in the posterior tibialis, flexure hallucis longus and flexor digitorum longus tendon sheaths. Underlying tendons are normal. 5. Spurring from the anterior tibial plafond and the adjacent anterior talar neck cortex predispose to anterior impingement on ankle dorsiflexion. Interpreted and Authenticated by: Fermín Tai 11/15/20
[2020-11-15] MEDS: 0.9 % SODIUM CHLORIDE 10 ML SYRINGE IV SCH ×3 (06:18→22:11)
[2020-11-15 07:06] LABS: Basophils # (Auto) 0.09 K/mcL (0.00-0.20); Basophils % (Auto) 0.7 % (0.0-2.0); Eosinophils # (Auto) 0.18 K/mcL (0.00-0.70); Eosinophils % (Auto) 1.4 % (0.0-7.0); Hemoglobin 12.2 g/dL (12.0-15.0); Lymphocytes # (Auto) 1.62 K/mcL (1.50-4.80); Mean Corpuscular HGB Conc 33.9 g/dL (31.0-36.0); Mean Platelet Volume 10.2 fL (7.4-10.4); Monocytes # (Auto) 1.33 K/mcL (0.10-0.90); Monocytes % (Auto) 10.6 % (1.0-12.0); Neutrophils % (Auto) 74.3 % (38.0-78.0); Platelet Count 323 K/mcL (140-440); RBC 3.71 M/mcL (4.00-5.20); Red Cell Distribution Width 12.3 % (11.5-14.5); WBC 12.5 K/mcL (4.5-11.0)
[2020-11-15] MEDS: INSULIN LISPRO 1 UNIT/0.01 ML UNIT SQ SCH ×4 (07:30→22:10)
[2020-11-15 07:33] LABS: ALT/SGPT 36 U/L (<40); AST/SGOT 50 U/L (<32); Albumin 2.3 gm/dL (3.2-5.2); Albumin/Globulin Ratio 0.5 (1.0-2.3); Alkaline Phosphatase 175 U/L (39-117); Bilirubin,Direct 0.3 mg/dL (<0.3); Bilirubin,Total 0.6 mg/dL (0.1-1.0); Blood Urea Nitrogen 6 mg/dL (6-20); Carbon Dioxide 24 mmol/L (22-30); Chloride 101 mmol/L (96-108); Globulin 4.2 gm/dL (2.2-3.7); Glomerular Filtration Rate 98; Glucose 108 mg/dL (70-105); Lactate Dehydrogenase 186 U/L (135-225); Phosphorous 2.2 mg/dL (2.5-4.5); Triglycerides 149 mg/dL (<150); Uric Acid 3.2 mg/dL (2.5-8.0)
--- NOTE | 2020-11-15 07:34 | Internal Med Progress Note ---
SUBJECTIVE Subjective Patient information: Note initiated : 11/15/20 at 7:29 am Service Date, if different from initiated Date: [] Patient: Patricia Guerra a 55 y/o F admitted on 11/13/20 for Diabetic Right Foot Ulcer. Chief Complaint: [] Principal diagnosis: Sepsis CSSSI Right great toe. Onycomycosis toenails. Interval history: History of present illness: Ms. Guerra is a 55 year old F known diabetic who is currently homeless and living in a tent. Patient presented to [facility] ER for worsening right foot and big toe pain after she stepped on a glass sometime ago. She does not have access to protective footwear and moves around in flip-flops. She feels she stubbed on something that started the pain and swelling of the feet. She is known diabetic but poorly controlled and does not take any medications. She follows up with [facility] clinic intermittently. Over the last couple of days pain and swelling has remarkably worsened with bluish discoloration of toe significance redness involving the foot. Initial work-up in the ER was consistent with severely swollen right great toe along with open wound on the dorsal aspect, sodium 126, potassium 3, creatinine 1.4, blood sugar 203 and a white count of 18.1. Patient was started on Rocephin after cultures were drawn. Due to lack of availability of beds hospitalist service was consulted at [facility] for transfer and further management. I received a phone description as above from Jonathan Bender ER physician at [facility]. Patient received at [facility] in stable state. At the time of my evaluation patient is alert and oriented. She endorses hi story as above. She denies fever, diarrhea, shaking chills, headache, photophobia. She extremely unkempt and appears disheveled. 11/[address] Berumen. Patient has no overnight event or new complaints. She is homeless and ran out of her medications months ago and has not been on any for quite a while. Nurse attempting to obtain old medication list. Sounds like she was on insulin. 11/15 No overnight or new complaints. MRI with osteo in the foot diffuse cellulitis. Review of Systems: denies headache/fever/chills/nausea/vomiting/chest or abdominal pain/cough/dyspnea/diarrhea. Otherwise see above. Constitutional Vitals: Vital Signs Temp Pulse Resp BP Pulse Ox 99.8 F H 94 H 20 154/89 97 11/15/20 03:00 11/15/20 03:00 11/15/20 03:00 11/15/20 03:00 11/15/20 03:00 Period Temp Pulse Resp BP Sys/Patel Pulse Ox Last 24 Hr 98.3 F-99.9 F 85-110 16-20 119-162/71-99 96-98 Intake and Output 11/14/20 11/15/20 11/15/20 21:59 05:59 13:59 Intake Total 1250 720 Output Total 1700 1800 600 Balance -450 -1080 -600 Weight 84.55 kg Intake & Output: Intake & Output 11/14/20 11/15/20 11/15/20 21:59 05:59 13:59 Intake Total 1250 720 Output Total 1700 1800 600 Balance -450 -1080 -600 Weight 84.55 kg Intake: IV 50 500 Vancomycin 1,250 mg In Sodium 500 Chloride 0.9% 500 ml @ 333.3 mls/hr IV Q12H [facility] Rx#: [id number] Oral 1200 220 Output: Void Amount 1700 1800 600 Other: Meal Dinner Percent of Meal Consumed 100% Feeding Ability Independent Urine Appearance Sediment Clear Clear Urine Color Dark Yellow Dark Yellow Bright Yellow Urine Odor Normal Exam: general: Alert, Awake, No acute Distress Eyes/N/T: EOMI, Head/Neck: neck supple, CV: rrr, No murmurs, Pulm: Clear b/l, no wheezing/rhonchi/rales Abd: soft, nontender, +BS x4 Ext: no clubbing/cyanosis/edema. right great toe in dressings Neuro: Alert, no focal deficits, moves all extremities, Skin: warm/dry OBJ DATA Labs CBC & Chem 7: 11/15/20 05:26 11/15/20 05:26 Labs: Abnormal Lab Results 11/15/20 11/14/20 11/14/20 05:26 05:08 05:08 WBC 12.5 H 14.5 H RBC 3.71 L 3.57 L Hgb 11.9 L Hct 34.7 L MPV 10.9 H Neut % (Auto) Lymph % (Auto) 13.0 L Lymph # (Auto) [place] # (Auto) 1.33 H 1.58 H Absolute Neutrophils 9.27 H 10.32 H ESR Sodium 132 L Potassium Chloride Glucose 118 H Hemoglobin A1c Calcium 7.8 L Magnesium 1.4 L Direct Bilirubin 0.4 H GGT 437 H AST 75 H ALT 41 H Alkaline Phosphatase 223 H Lactate Dehydrogenase 257 H C-Reactive Protein Albumin 2.1 L Globulin 3.8 H Albumin/Globulin Ratio 0.6 L Triglycerides 170 H Procalcitonin 11/13/20 11/13/20 11/13/20 05:08 05:08 05:08 WBC RBC Hgb Hct MPV Neut % (Auto) Lymph % (Auto) Lymph # (Auto) [place] # (Auto) Absolute Neutrophils ESR 90 H Sodium Potassium Chloride Glucose Hemoglobin A1c 9.7 H Calcium Magnesium Direct Bilirubin GGT AST ALT Alkaline Phosphatase Lactate Dehydrogenase C-Reactive Protein Albumin Globulin Albumin/Globulin Ratio Triglycerides Procalcitonin 1.45 H 11/13/20 11/13/20 11/13/20 05:08 05:08 05:08 WBC 15.4 H RBC 3.44 L Hgb 11.4 L Hct 32.9 L MPV 10.6 H Neut % (Auto) 78.9 H Lymph % (Auto) 7.9 L Lymph # (Auto) 1.22 L [place] # (Auto) 1.66 H Absolute Neutrophils 12.16 H ESR Sodium 129 L Potassium 2.9 L* Chloride 95 L Glucose 186 H Hemoglobin A1c Calcium 7.7 L Magnesium 1.3 L Direct Bilirubin 0.5 H GGT 438 H AST 86 H ALT Alkaline Phosphatase 193 H Lactate Dehydrogenase 259 H C-Reactive Protein 22.80 H Albumin 2.3 L Globulin 4.2 H Albumin/Globulin Ratio 0.5 L Triglycerides 193 H Procalcitonin Meds: Medications Acetaminophen (Acetaminophen 325 Mg Tablet) 650 mg PO Q4-6HP PRN; Protocol PRN Reason: Per Pain Protocol/Fever > 101 Hydrocodone Bitart/Acetaminophen (Hydrocodone/Apap 7.5/325mg Tablet) 1 tab PO Q4HP PRN; Protocol PRN Reason: Per Pain Protocol Last Admin: 11/14/20 00:52 Dose: 1 tab Documented by: Bisacodyl (Bisacodyl 10 Mg Supp.Rect) [address] Q2-3DAYS PRN PRN Reason: Constipation Cyanocobalamin (Cyanocobalamin (Vitamin B-12) 500 Mcg Tablet) 1,000 mcg PO BID [facility] Stop: 11/17/20 21:01 Last Admin: 11/14/20 20:58 Dose: 1,000 mcg Documented by: Dextrose (Dextrose 50% 50 Ml Vial) 0 ml IV UD PRN PRN Reason: Hypoglycemia Diagnostic Test (Pha) (Accu-Chek 1 Each Strip) 1 each FS ACHS [facility] Last Admin: 11/15/20 07:26 Dose: 1 each Documented by: Glucose (Dextrose 31 Gm Oral.Susp) 15 gm PO PRN PRN PRN Reason: Hypoglycemia Heparin Sodium (Porcine) (Heparin 5,000 Unit/Ml Vial) 5,000 unit SQ Q12 [facility] Last Admin: 11/14/20 20:57 Dose: 5,000 unit Documented by: Hydralazine HCl (Hydralazine 20 Mg/Ml Vial) 10 mg IV Q4-6HP PRN PRN Reason: Hypertension Acetaminophen (Ofirmev) 650 mg in 65 mls @ 130 mls/hr IV Q6HP PRN; Protocol PRN Reason: Per Pain Protocol/Fever > 101 Magnesium Sulfate (Magnesium Sulfate) 2 gm in 50 mls @ 50 mls/hr IV UD PRN PRN Reason: MG = or < 1.7 Last Infusion: 11/13/20 14:10 Dose: Infused Documented by: Sodium Chloride (Sodium Chloride 0.9%) 1,000 mls @ 50 mls/hr IV .Q20H [facility] Stop: 11/15/20 18:14 Last Admin: 11/14/20 23:59 Dose: Not Given Documented by: Ceftriaxone Sodium 2 gm/ (Dextrose) 50 mls @ 100 mls/hr IV DAILY [facility]; Protocol Last Infusion: 11/14/20 09:34 Dose: Infused Documented by: Vancomycin HCl 1,250 mg/ (Sodium Chloride) 500 mls @ 333.3 mls/hr IV Q12H [facility] Last Infusion: 11/14/20 23:00 Dose: Infused Documented by: Insulin Glargine (Insulin Glargine, Human 1 Unit/0.01 Ml) 10 unit SQ DAILY [facility] Last Admin: 11/14/20 08:58 Dose: 10 units Documented by: Insulin Human Lispro (Insulin Lispro 1 Unit/0.01 Ml Unit) 0 unit SQ ACHS [facility]; Protocol Last Admin: 11/14/20 20:57 Dose: 1 units Documented by: Iron Carb/Multivit/[place]/Folic Acid (Multivit,Ther Iron,Ca,Fa & Min 1 Tablet) 1 tab PO DAILY [facility] Last Admin: 11/14/20 08:57 Dose: 1 tab Documented by: Melatonin (Melatonin 3 Mg Tablet) 3 mg PO HSP PRN PRN Reason: Insomnia Metformin HCl (Metformin 500 Mg Tab.Xl.24h) 500 mg PO QAC [facility] Last Admin: 11/14/20 12:23 Dose: 500 mg Documented by: Mupirocin (Mupirocin Oint 2% 22gm) 1 dose TOPICAL DAILY [facility] Last Admin: 11/14/20 20:57 Dose: 1 dose Documented by: Ondansetron HCl (Ondansetron 4 Mg Odt Tablet) 4 mg SL Q4-6HP PRN; Protocol PRN Reason: Nausea And Vomiting Ondansetron HCl (Ondansetron 4 Mg/2 Ml Vial) 4 mg IV Q4-6HP PRN; Protocol PRN Reason: Nausea And Vomiting Polyethylene Glycol (Polyethylene Glycol 3350 17 Gm Packet) 17 gm PO DAILYP PRN PRN Reason: Constipation Potassium Chloride (Potassium Chloride 20 Meq Packet) 40 meq PO DAILYP PRN PRN Reason: K+ < 3.5 Last Admin: 11/13/20 08:37 Dose: 40 meq Documented by: Senna/Docusate Sodium (Sennosides/Docusate Sodium 1 Tab Tablet) 1 tab PO HS [facility] Last Admin: 11/14/20 20:57 Dose: 1 tab Documented by: Sitagliptin Phosphate (Sitagliptin 100 Mg Tablet) 100 mg PO DAILY [facility] Last Admin: 11/14/20 08:56 Dose: 100 mg Documented by: Sodium Chloride (0.9 % Sodium Chloride 10 Ml Syringe) 10 ml IV Q8 [facility] Last Admin: 11/15/20 06:18 Dose: Not Given Documented by: Thiamine HCl (Thiamine 100 Mg Tablet) 100 mg PO DAILY [facility] Last Admin: 11/14/20 08:57 Dose: 100 mg Documented by: Vancomycin HCl (Vancomycin Per Pharmacy) 1 order IV UD [facility]; Protocol A/P Narrative A/P Narrative: A: *Diabetic right foot cellulitis and great to osteo & 2nd MT head ?osteo: *severe sepsis with endorgan dysfunction: -leukocytosis improving *Medication noncompliance: has been off meds for months *CKD II: *Anemia, likely chronic: *Hyponatremia/kalemia/mag: improved *DM, Poorly controlled diabetes. Has not been on her medications for months. -A1c 9.7 *Self-care deficit/homelessness: *Transaminitis: 2/2 fatty liver Plan: -on rocephin/vanco -Ata/wound care consult, possible toe amputation on monday -Electrolyte replacement -SSI, start on metformin -clarify home meds, still waiting -PT OT/case management consultation for safe discharge plan -ppx: heparin DNR Time Spent With Patient Time: Total time spent is greater than 50% in coordination of care (as documented) at patient's floor/unit and/or counseling patient: QUALITY VTE Deep Vein Thrombosis/Pulmonary Embolism Present on Admission: No
[2020-11-15] MEDS ORDERED: MAGNESIUM SULFATE 24.36 MEQ in DEXTROSE 5% IN WATER 50 ML IV ONE (09:00)
[2020-11-15] MEDS: cefTRIAXone 2 GM in DEXTROSE 5% IN WATER 50 ML IV SCH (09:36)
[2020-11-15] MEDS: MULTIVIT,THER IRON,CA,FA & MIN 1 TABLET PO SCH (09:38)
[2020-11-15] MEDS: metFORMIN 500 MG TAB.XL.24H PO SCH (09:38)
[2020-11-15] MEDS: PHOSPHORUS 250 MG TABLET PO SCH ×2 (09:39→22:10)
[2020-11-15] MEDS: HEPARIN 5,000 UNIT/ML VIAL SQ SCH ×2 (09:39→22:10)
[2020-11-15] MEDS: NEUTRA PHOS 1 PACKET PO SCH ×2 (09:39→22:10)
[2020-11-15] MEDS: INSULIN GLARGINE, HUMAN 1 UNIT/0.01 ML SQ SCH (09:39)
[2020-11-15] MEDS: THIAMINE 100 MG TABLET PO SCH (09:39)
[2020-11-15] MEDS: sitaGLIPtin 100 MG TABLET PO SCH (09:39)
[2020-11-15] MEDS: MUPIROCIN OINT 2% 22GM TOPICAL SCH ×2 (09:39→14:31)
[2020-11-15] MEDS: CYANOCOBALAMIN (VITAMIN B-12) 500 MCG TABLET PO SCH ×2 (09:39→22:09)
[2020-11-15] MEDS: VANCOMYCIN 1,250 MG in 0.9 % SODIUM CHLORIDE 500 ML IV SCH ×2 (10:47→22:04)
--- NOTE | 2020-11-15 15:46 | General Surgery Progress Note ---
SUBJECTIVE Subjective Patient information: Note initiated : 11/15/20 at 3:34 pm Service Date, if different from initiated Date: [] Patient: Patricia Guerra 55 y/o F admitted on 11/13/20 for Diabetic Right Foot Ulcer. Chief Complaint: [] Principal diagnosis: Sepsis CSSSI Right great toe. Onycomycosis toenails. Interval history: Patient seen along with Khushi FARIAS. Patient had an uneventful night. Continues to be on IV Vancomycin and Ceftriaxone and local wound care. Constitutional Vitals: Vital Signs Temp Pulse Resp BP Pulse Ox 97.9 F 84 16 162/95 97 11/15/20 11:27 11/15/20 11:27 11/15/20 11:27 11/15/20 11:27 11/15/20 11:27 Period Temp Pulse Resp BP Sys/Patel Pulse Ox Last 24 Hr 97.5 F-99.9 F 84-110 16-20 119-162/71-99 96-98 Intake and Output 11/15/20 11/15/20 11/15/20 05:59 13:59 21:59 Intake Total 720 2040 Output Total 1800 1450 Balance -1080 590 Intake & Output: Intake & Output 11/15/20 11/15/20 11/15/20 05:59 13:59 21:59 Intake Total 720 2040 Output Total 1800 1450 Balance -1080 590 Intake: IV 500 550 Vancomycin 1,250 mg In Sodium 500 500 Chloride 0.9% 500 ml @ 333.3 mls/hr IV Q12H [facility] Rx#: [id number] Rocephin 2 gm In Dextrose 5% in 50 Water 50 ml @ 100 mls/hr IV DAILY [facility] Rx#:[id number] Oral 220 1490 Output: Void Amount 1800 1450 Other: Meal Lunch Percent of Meal Consumed 100% Feeding Ability Independent Urine Appearance Clear Clear Urine Color Dark Yellow Dark Yellow Urine Odor Normal Stool Size Moderate Stool Color Brown Stool Consistency Loose # Bowel Movements 1 General appearance: cooperative and no acute distress Exam: NO changes in NASIM. L/E. RIGHT great toe wounds are drying up, but still continues with demarcation and some odorous drainage. Wound c/s. Strep agalactiae. Sensitivities pending. Responding to IV antibiotics and local wound care. Labs: CRP, WBC, Blood glucose and Creatinine are TRENDING DOWN. No changes is distal soft tissue inflammation. Patient is NOT keen on surgery / toe amputation at this time. Enquiring about second opinion. Will get reassess again tomorrow with wound care nurse Kendy FARIAS. LATER Consider ID consultation by Dr. Belle and second opinion by Dr. Monzon. A/P Narrative A/P Narrative: Assessment: No changes in NASIM. Local wound care and systemic IV antibiotics to continue. Plan: Continue present management. Reassess in AM. 11/16/2020 Time Spent With Patient Time: Total time spent is greater than 50% in coordination of care (as documented) at patient's floor/unit and/or counseling patient: Total time spent with greater than 50% in coordination of care (as documented) at patient's floor/unit and/or counseling patient:: Greater than 35 minutes
[2020-11-15] MEDS: 0.9 % SODIUM CHLORIDE 1,000 ML IV SCH (16:52)
[2020-11-15] MEDS: SENNOSIDES/DOCUSATE SODIUM 1 TAB TABLET PO SCH (22:10)
[2020-11-16] MEDS: 0.9 % SODIUM CHLORIDE 10 ML SYRINGE IV SCH ×3 (06:22→21:05)
[2020-11-16 07:00] LABS: Basophils # (Auto) 0.07 K/mcL (0.00-0.20); Basophils % (Auto) 0.6 % (0.0-2.0); Eosinophils % (Auto) 1.7 % (0.0-7.0); Hematocrit 35.4 % (36.0-48.0); Lymphocytes # (Auto) 2.04 K/mcL (1.50-4.80); Lymphocytes % (Auto) 17.5 % (15.0-49.0); Mean Cell Volume 98.3 fL (80.0-100.0); Mean Corpuscular HGB Conc 33.9 g/dL (31.0-36.0); Mean Platelet Volume 9.8 fL (7.4-10.4); Monocytes % (Auto) 9.4 % (1.0-12.0); Platelet Count 362 K/mcL (140-440); Red Cell Distribution Width 12.3 % (11.5-14.5); WBC 11.7 K/mcL (4.5-11.0)
[2020-11-16 07:12] LABS: ALT/SGPT 34 U/L (<40); AST/SGOT 52 U/L (<32); Albumin 2.3 gm/dL (3.2-5.2); Albumin/Globulin Ratio 0.5 (1.0-2.3); Alkaline Phosphatase 193 U/L (39-117); Bilirubin,Direct 0.2 mg/dL (<0.3); Bilirubin,Total 0.5 mg/dL (0.1-1.0); Blood Urea Nitrogen 7 mg/dL (6-20); Calcium 8.2 mg/dL (8.6-10.4); Carbon Dioxide 25 mmol/L (22-30); Chloride 102 mmol/L (96-108); Globulin 4.3 gm/dL (2.2-3.7); Glomerular Filtration Rate 98; Glucose 112 mg/dL (70-105); Lactate Dehydrogenase 202 U/L (135-225); Phosphorous 3.3 mg/dL (2.5-4.5); Triglycerides 140 mg/dL (<150); Uric Acid 2.6 mg/dL (2.5-8.0)
[2020-11-16] MEDS ORDERED: MAGNESIUM SULFATE 24.36 MEQ in DEXTROSE 5% IN WATER 50 ML IV ONE (07:21)
--- NOTE | 2020-11-16 07:21 | Internal Med Progress Note ---
SUBJECTIVE Subjective Patient information: Note initiated : 11/16/20 at 7:19 am Service Date, if different from initiated Date: [] Patient: Patricia Guerra a 55 y/o F admitted on 11/13/20 for Diabetic Right Foot Ulcer. Chief Complaint: [] Principal diagnosis: Sepsis CSSSI Right great toe. Onycomycosis toenails. Interval history: History of present illness: Ms. Guerra is a 55 year old F known diabetic who is currently homeless and living in a tent. Patient presented to [facility] ER for worsening right foot and big toe pain after she stepped on a glass sometime ago. She does not have access to protective footwear and moves around in flip-flops. She feels she stubbed on something that started the pain and swelling of the feet. She is known diabetic but poorly controlled and does not take any medications. She follows up with [facility] clinic intermittently. Over the last couple of days pain and swelling has remarkably worsened with bluish discoloration of toe significance redness involving the foot. Initial work-up in the ER was consistent with severely swollen right great toe along with open wound on the dorsal aspect, sodium 126, potassium 3, creatinine 1.4, blood sugar 203 and a white count of 18.1. Patient was started on Rocephin after cultures were drawn. Due to lack of availability of beds hospitalist service was consulted at [facility] for transfer and further management. I received a phone description as above from Jonathan Bender ER physician at [facility]. Patient received at [facility] in stable state. At the time of my evaluation patient is alert and oriented. She endorses hi story as above. She denies fever, diarrhea, shaking chills, headache, photophobia. She extremely unkempt and appears disheveled. 11/[address] Berumen. Patient has no overnight event or new complaints. She is homeless and ran out of her medications months ago and has not been on any for quite a while. Nurse attempting to obtain old medication list. Sounds like she was on insulin. 11/15 No overnight or new complaints. MRI with osteo in the foot diffuse cellulitis. 11/16 Feeling well. No overnight or new complaints. Low mag will replace. Review of Systems: denies headache/fever/chills/nausea/vomiting/chest or abdominal pain/cough/dyspnea/diarrhea. Otherwise see above. Constitutional Vitals: Vital Signs Temp Pulse Resp BP Pulse Ox 97.6 F 87 18 142/83 97 11/16/20 06:56 11/16/20 06:56 11/16/20 06:56 11/16/20 06:56 11/16/20 06:56 Period Temp Pulse Resp BP Sys/Patel Pulse Ox Last 24 Hr 97.5 F-99.3 F 83-94 16-24 133-162/82-99 95-97 Intake and Output 11/15/20 11/16/20 11/16/20 21:59 05:59 13:59 Intake Total 296 720 Output Total 775 1250 Balance -479 -530 Weight 86.545 kg Intake & Output: Intake & Output 11/15/20 11/16/20 11/16/20 21:59 05:59 13:59 Intake Total 296 720 Output Total 775 1250 Balance -479 -530 Weight 86.545 kg Intake: IV 56 500 Magnesium Sulfate 24.36 Meq In 56 Dextrose 5% in Water 50 ml @ 18 .667 mls/hr IV ONCE ONE Rx#: [id number] Vancomycin 1,250 mg In Sodium 500 Chloride 0.9% 500 ml @ 333.3 mls/hr IV Q12H [facility] Rx#: [id number] Oral 240 220 Output: Void Amount 775 1250 Other: Meal Dinner Percent of Meal Consumed 95% Feeding Ability Independent Urine Appearance Clear Clear Urine Color Dark Yellow Bright Yellow Urine Odor Normal Stool Size Small Stool Color Brown Stool Consistency Loose # Voids 1 Exam: general: Alert, Awake, No acute Distress Eyes/N/T: EOMI, Head/Neck: neck supple, CV: rrr, No murmurs, Pulm: Clear b/l, no wheezing/rhonchi/rales Abd: soft, nontender, +BS x4 Ext: no clubbing/cyanosis/edema. right great toe in dressings Neuro: Alert, no focal deficits, moves all extremities, Skin: warm/dry OBJ DATA Labs CBC & Chem 7: 11/16/20 05:24 11/16/20 05:24 Labs: Abnormal Lab Results 11/16/20 11/16/20 11/15/20 05:24 05:24 05:26 WBC 11.7 H RBC 3.60 L Hgb Hct 35.4 L MPV Lymph % (Auto) [place] # (Auto) 1.10 H Absolute Neutrophils 8.27 H ESR Sodium Potassium Chloride Glucose 112 H Hemoglobin A1c Calcium 8.2 L Phosphorus Magnesium 1.3 L Direct Bilirubin GGT 445 H AST 52 H ALT Alkaline Phosphatase 193 H Lactate Dehydrogenase C-Reactive Protein 9.50 H Albumin 2.3 L Globulin 4.3 H Albumin/Globulin Ratio 0.5 L Triglycerides 11/15/20 11/15/20 11/15/20 05:26 05:26 05:26 WBC 12.5 H RBC 3.71 L Hgb Hct MPV Lymph % (Auto) 13.0 L [place] # (Auto) 1.33 H Absolute Neutrophils 9.27 H ESR 84 H Sodium Potassium Chloride Glucose 108 H Hemoglobin A1c Calcium 8.0 L Phosphorus 2.2 L Magnesium 1.2 L Direct Bilirubin 0.3 H GGT 441 H AST 50 H ALT Alkaline Phosphatase 175 H Lactate Dehydrogenase C-Reactive Protein Albumin 2.3 L Globulin 4.2 H Albumin/Globulin Ratio 0.5 L Triglycerides 11/14/20 11/14/20 11/13/20 05:08 05:08 05:08 WBC 14.5 H RBC 3.57 L Hgb 11.9 L Hct 34.7 L MPV 10.9 H Lymph % (Auto) [place] # (Auto) 1.58 H Absolute Neutrophils 10.32 H ESR Sodium 132 L Potassium Chloride Glucose 118 H Hemoglobin A1c 9.7 H Calcium 7.8 L Phosphorus Magnesium 1.4 L Direct Bilirubin 0.4 H GGT 437 H AST 75 H ALT 41 H Alkaline Phosphatase 223 H Lactate Dehydrogenase 257 H C-Reactive Protein Albumin 2.1 L Globulin 3.8 H Albumin/Globulin Ratio 0.6 L Triglycerides 170 H 11/13/20 11/13/20 11/13/20 05:08 05:08 05:08 WBC RBC Hgb Hct MPV Lymph % (Auto) [place] # (Auto) Absolute Neutrophils ESR 90 H Sodium 129 L Potassium 2.9 L* Chloride 95 L Glucose 186 H Hemoglobin A1c Calcium 7.7 L Phosphorus Magnesium 1.3 L Direct Bilirubin 0.5 H GGT 438 H AST 86 H ALT Alkaline Phosphatase 193 H Lactate Dehydrogenase 259 H C-Reactive Protein 22.80 H Albumin 2.3 L Globulin 4.2 H Albumin/Globulin Ratio 0.5 L Triglycerides 193 H Meds: Medications Acetaminophen (Acetaminophen 325 Mg Tablet) 650 mg PO Q4-6HP PRN; Protocol PRN Reason: Per Pain Protocol/Fever > 101 Hydrocodone Bitart/Acetaminophen (Hydrocodone/Apap 7.5/325mg Tablet) 1 tab PO Q4HP PRN; Protocol PRN Reason: Per Pain Protocol Last Admin: 11/14/20 00:52 Dose: 1 tab Documented by: Bisacodyl (Bisacodyl 10 Mg Supp.Rect) 10 mg NE Q2-3DAYS PRN PRN Reason: Constipation Cyanocobalamin (Cyanocobalamin (Vitamin B-12) 500 Mcg Tablet) 1,000 mcg PO BID [facility] Stop: 11/17/20 21:01 Last Admin: 11/15/20 22:09 Dose: 1,000 mcg Documented by: Dextrose (Dextrose 50% 50 Ml Vial) 0 ml IV UD PRN PRN Reason: Hypoglycemia Diagnostic Test (Pha) (Accu-Chek 1 Each Strip) 1 each FS ACHS [facility] Last Admin: 11/15/20 21:54 Dose: 1 each Documented by: Glucose (Dextrose 31 Gm Oral.Susp) 15 gm PO PRN PRN PRN Reason: Hypoglycemia Heparin Sodium (Porcine) (Heparin 5,000 Unit/Ml Vial) 5,000 unit SQ Q12 [facility] Last Admin: 11/15/20 22:10 Dose: 5,000 unit Documented by: Hydralazine HCl (Hydralazine 20 Mg/Ml Vial) 10 mg IV Q4-6HP PRN PRN Reason: Hypertension Acetaminophen (Ofirmev) 650 mg in 65 mls @ 130 mls/hr IV Q6HP PRN; Protocol PRN Reason: Per Pain Protocol/Fever > 101 Magnesium Sulfate (Magnesium Sulfate) 2 gm in 50 mls @ 50 mls/hr IV UD PRN PRN Reason: MG = or < 1.7 Last Infusion: 11/13/20 14:10 Dose: Infused Documented by: Ceftriaxone Sodium 2 gm/ (Dextrose) 50 mls @ 100 mls/hr IV DAILY [facility]; Protocol Last Infusion: 11/15/20 10:50 Dose: Infused Documented by: Vancomycin HCl 1,250 mg/ (Sodium Chloride) 500 mls @ 333.3 mls/hr IV Q12H [facility] Last Infusion: 11/16/20 00:05 Dose: Infused Documented by: Insulin Glargine (Insulin Glargine, Human 1 Unit/0.01 Ml) 10 unit SQ DAILY [facility] Last Admin: 11/15/20 09:39 Dose: 10 units Documented by: Insulin Human Lispro (Insulin Lispro 1 Unit/0.01 Ml Unit) 0 unit SQ [facility]; Protocol Last Admin: 11/15/20 22:10 Dose: 2 units Documented by: Iron Carb/Multivit/[place]/Folic Acid (Multivit,Ther Iron,Ca,Fa & Min 1 Tablet) 1 tab PO DAILY [facility] Last Admin: 11/15/20 09:38 Dose: 1 tab Documented by: Melatonin (Melatonin 3 Mg Tablet) 3 mg PO HSP PRN PRN Reason: Insomnia Metformin HCl (Metformin 500 Mg Tab.Xl.24h) [facility] Last Admin: 11/15/20 09:38 Dose: 500 mg Documented by: Mupirocin (Mupirocin Oint 2% 22gm) 1 dose TOPICAL DAILY [facility] Last Admin: 11/15/20 14:31 Dose: 1 dose Documented by: Ondansetron HCl (Ondansetron 4 Mg Odt Tablet) 4 mg SL Q4-6HP PRN; Protocol PRN Reason: Nausea And Vomiting Ondansetron HCl (Ondansetron 4 Mg/2 Ml Vial) 4 mg IV Q4-6HP PRN; Protocol PRN Reason: Nausea And Vomiting Polyethylene Glycol (Polyethylene Glycol 3350 17 Gm Packet) 17 gm PO DAILYP PRN PRN Reason: Constipation Potassium Chloride (Potassium Chloride 20 Meq Packet) 40 meq PO DAILYP PRN PRN Reason: K+ < 3.5 Last Admin: 11/13/20 08:37 Dose: 40 meq Documented by: Senna/Docusate Sodium (Sennosides/Docusate Sodium 1 Tab Tablet) 1 tab PO HS [facility] Last Admin: 11/15/20 22:10 Dose: 1 tab Documented by: Sitagliptin Phosphate (Sitagliptin 100 Mg Tablet) 100 mg PO DAILY [facility] Last Admin: 11/15/20 09:39 Dose: 100 mg Documented by: Sodium Chloride (0.9 % Sodium Chloride 10 Ml Syringe) 10 ml IV Q8 [facility] Last Admin: 11/16/20 06:22 Dose: Not Given Documented by: Thiamine HCl (Thiamine 100 Mg Tablet) 100 mg PO DAILY [facility] Last Admin: 11/15/20 09:39 Dose: 100 mg Documented by: Vancomycin HCl (Vancomycin Per Pharmacy) 1 order IV UD [facility]; Protocol A/P Narrative A/P Narrative: A: *Diabetic right foot cellulitis and great to osteo & 2nd MT head ?osteo: *severe sepsis with endorgan dysfunction: -leukocytosis improved *Medication noncompliance: has been off meds for months *CKD II: *Anemia, likely chronic: *Hyponatremia/kalemia/mag: improved *DM, Poorly controlled diabetes. Has not been on her medications for months. -A1c 9.7 *Self-care deficit/homelessness: *Transaminitis: 2/2 fatty liver Plan: -on rocephin, vanco (d/c) -Ata/wound care consult, possible toe amputation on monday -Electrolyte replacement -SSI, started on metformin -clarify home meds, still waiting -PT OT/case management consultation for safe discharge plan -ppx: heparin DNR Time Spent With Patient Time: Total time spent is greater than 50% in coordination of care (as documented) at patient's floor/unit and/or counseling patient: QUALITY VTE Deep Vein Thrombosis/Pulmonary Embolism Present on Admission: No
[2020-11-16] MEDS: INSULIN LISPRO 1 UNIT/0.01 ML UNIT SQ SCH ×4 (07:36→21:05)
[2020-11-16] MEDS: HEPARIN 5,000 UNIT/ML VIAL SQ SCH ×2 (07:39→21:05)
[2020-11-16] MEDS: ACETAMINOPHEN 325 MG TABLET PO PRN (07:39)
[2020-11-16] MEDS: INSULIN GLARGINE, HUMAN 1 UNIT/0.01 ML SQ SCH (07:39)
[2020-11-16] MEDS: CYANOCOBALAMIN (VITAMIN B-12) 500 MCG TABLET PO SCH ×2 (07:40→21:05)
[2020-11-16] MEDS: metFORMIN 500 MG TAB.XL.24H PO SCH (07:40)
[2020-11-16] MEDS: MULTIVIT,THER IRON,CA,FA & MIN 1 TABLET PO SCH (07:40)
[2020-11-16] MEDS: THIAMINE 100 MG TABLET PO SCH (07:40)
[2020-11-16] MEDS: sitaGLIPtin 100 MG TABLET PO SCH (07:40)
[2020-11-16 08:15] LABS: Neutrophils % (Auto) 70.8 % (38.0-78.0)
[2020-11-16] MEDS: cefTRIAXone 2 GM in DEXTROSE 5% IN WATER 50 ML IV SCH (08:51)
--- NOTE | 2020-11-16 10:02 | General Surgery Progress Note ---
SUBJECTIVE Subjective Patient information: Note initiated : 11/16/20 at 9:54 am Service Date, if different from initiated Date: [] Patient: Patricia Guerra 55 y/o F admitted on 11/13/20 for Diabetic Right Foot Ulcer. Chief Complaint: [] Principal diagnosis: Sepsis CSSSI Right great toe. Onycomycosis toenails. Additional PMFSH (Level 3 Only): Patient seen on rounds with her mother present in the room. Reviewed her progress and lab results available thus far. Constitutional Vitals: Vital Signs Temp Pulse Resp BP Pulse Ox 97.6 F 87 18 142/83 97 11/16/20 06:56 11/16/20 06:56 11/16/20 06:56 11/16/20 06:56 11/16/20 06:56 Period Temp Pulse Resp BP Sys/Patel Pulse Ox Last 24 Hr 97.6 F-99.3 F 83-94 16-24 133-162/82-99 95-97 Intake and Output 11/15/20 11/16/20 11/16/20 21:59 05:59 13:59 Intake Total 296 720 170 Output Total 775 1250 600 Balance -479 -530 -430 Weight 190 lb 12.8 oz Intake & Output: Intake & Output 11/15/20 11/16/20 11/16/20 21:59 05:59 13:59 Intake Total 296 720 170 Output Total 775 1250 600 Balance -479 -530 -430 Weight 190 lb 12.8 oz Intake: IV 56 500 50 Magnesium Sulfate 24.36 Meq In 56 Dextrose 5% in Water 50 ml @ 18 .667 mls/hr IV ONCE ONE Rx#: [id number] Vancomycin 1,250 mg In Sodium 500 Chloride 0.9% 500 ml @ 333.3 mls/hr IV Q12H [facility] Rx#: [id number] Rocephin 2 gm In Dextrose 5% in 50 Water 50 ml @ 100 mls/hr IV DAILY [facility] Rx#:[id number] Oral 240 220 120 Output: Void Amount 775 1250 600 Other: Meal Dinner Breakfast Percent of Meal Consumed 95% 100% Feeding Ability Independent Independent Urine Appearance Clear Clear Clear Urine Color Dark Yellow Bright Yellow Bright Yellow Urine Odor Normal Normal Stool Size Small Stool Color Brown Stool Consistency Loose # Voids 1 General appearance: cooperative and no acute distress Exam: AVSS. No changes in NASIM. Local wound care of RIGHT great toe in on going. Reviewed X Ray and MRI pictures of RIGHT foot. WBC, Creatinine, Blood Sugars trending down. CRP down from 22 on admission to 9. Demarcating soft tissue changes involving distal half of great toe. Drainage and odor. Strep agalactiae on c/s On local wound care and IV antibiotics. A/P Narrative A/P Narrative: Assessment: RIGHT great toe CSSSI. Responding to IV antibiotics and local wound care. Patient requests SECOND opinion for treatment options. Plan: Continue current management. Consult Dr. Castillo Monzon, [facility] for second opinion. Discussed with Khushi FARIAS [facility] Continuing to follow patient. Addendum: Patient was seen by Dr.Karl Monzon, [facility] for Second Opinion. Patient now agrees for surgery RIGHT 1st toe amputation through J. Spoke with patient at length about I/R/B/C and A to surgery. . She agrees to proceed. Called OR, Spoke with GUADALUPE FARIAS . OR scheduled for later today 03:00 PM Time Spent With Patient Time: Total time spent is greater than 50% in coordination of care (as documented) at patient's floor/unit and/or counseling patient: Total time spent with greater than 50% in coordination of care (as documented) at patient's floor/unit and/or counseling patient:: 15 - 24 minutes
--- NOTE | 2020-11-16 10:25 | Orthopedic Consult Note ---
HPI Consult Narrative cc:: CC: Tanner Sanders Patient is a pleasant 55-year-old lady who has longstanding history of diabetes, neuropathy and homelessness. She is stepped on glass within the last week and the right foot has been getting progressively worse. She does not have protective footwear and usually wears flip-flops or sandals for ambulation. She became concerned when the toe started turning black and had drainage. She is initially hesitant to have amputation of the toe and requested a second opinion for which Dr. Yee upon day consulted podiatry to assess the toe. MEDS/ALLERGIES Home Medications and Allergies Home Medications Medication Instructions Recorded Confirmed Type acetaminophen 650 mg PO TID PRN 11/16/20 11/16/20 History albuterol 8.5 g PO Q4-8HP PRN 11/16/20 11/16/20 History dextromethorphan-guaifenesin 5 - 10 ml PO Q4-6HP PRN 11/16/20 11/16/20 History [Adult Tussin DM] glipizide 5 mg PO QDAY 11/16/20 11/16/20 History ipratropium bromide 2 spray INTRANASAL TID 11/16/20 11/16/20 History isopropyl alcohol 1 pad TOPICAL QDAY PRN 11/16/20 11/16/20 History lancing device [Auto-Lancets] 11/16/20 11/16/20 History lisinopril 2.5 mg PO QDAY 11/16/20 11/16/20 History metformin 1,000 mg PO BID 11/16/20 11/16/20 History Allergies Allergy/AdvReac Type Severity Reaction Status Date / Time No Known Drug Allergies Allergy Verified 11/13/20 03:07 Physical Examination Ankle & Foot right: Foot appearance: swelling and erythema Foot swelling: toes (Right hallux is necrotic and swollen with possible gas noted on x-ray and MRI. High risk for deep infection cellulitis with abscess and osteomyelitis acute/possible chronic.) A/P Time Spent With Patient Time: 30 minutes spent in reviewing patient charts, diagnostics, imaging, and discussion with patient: Extensive discussion with patient and mother at bedside regarding different courses of treatment. Patient advised that the chances for healing given her immune compromised situation and severity of infection with appearance of toe is not optimal. Patient agrees that the optimal treatment plan is as an amputation of her toe as soon as possible. She has been n.p.o. since 8:00 this morning and feels like she does not need additional time to reconsider as she has been thinking about this toe for some time now. Her mother was in attendance and a lso agrees with the outlined treatment plan Dr. Berumen is scheduling patient for surgery for hallux amputation as soon as it is appropriate.
[2020-11-16] MEDS: MUPIROCIN OINT 2% 22GM TOPICAL SCH (10:30)
--- NOTE | 2020-11-16 11:55 | EKG ---
[facility] Test Date: 2020-11-16 Pat Name: Patricia Guerra Department: MEDR Room: 106 Gender: Female [employer] Supervisor: : [id number] Requested By: Yassine Araiza Order Number: [id number] Reading MD: Martín Lara M.D. Measurements Intervals [place] Rate: 80 P: 1 VT: 156 QRS: 7 QRSD: 86 T: 29 QT: 392 QTc: 453 Interpretive Statements SINUS RHYTHM NO PRIOR TRACING FOUND IN [employer] NORMAL TRACING Electronically Signed On 11-16-2020 11:54:28 PDT by Martín Lara M.D. /store/M0/[id number].pdf
[2020-11-16] MEDS ORDERED: KETAMINE 50 MG/ML ML ONE (16:18)
[2020-11-16] MEDS ORDERED: MIDAZOLAM 2 MG/2 ML VIAL ONE (16:18)
[2020-11-16] MEDS ORDERED: fentaNYL 100 MCG/2 ML VIAL IV ONE (16:18)
[2020-11-16] MEDS ORDERED: GENTAMICIN SULFATE 800 MG/20 ML VIAL IR ONE (16:32)
[2020-11-16] MEDS ORDERED: BENZOCAINE/MENTHOL 1 LOZENGE PO PRN (16:49)
[2020-11-16] MEDS ORDERED: IPRATROPIUM/ALBUTEROL 3 ML AMPUL.NEB NEB PRN (16:49)
[2020-11-16] MEDS ORDERED: fentaNYL 100 MCG/2 ML VIAL IV PRN (16:49)
[2020-11-16] MEDS ORDERED: ONDANSETRON 4 MG/2 ML VIAL IV PRN (16:49)
[2020-11-16] MEDS ORDERED: LACTATED RINGERS 1,000 ML IV SCH (17:00)
--- NOTE | 2020-11-16 17:20 | Brief Operative Note ---
Brief Operative Note Date of procedure: 11/16/20 Pre-op diagnosis: SEPSIS Necrotizing SSSI Right great toe, Extending to proximal phalanx Post-op diagnosis: same Procedure: Right great toe amputation through MPJ. Grafts/Implants: No Anesthesia: local and conscious sedation Findings: Necrotizing / Suppurative SSSI Right great toe extending to proximal phalanx, Complications: none Surgeon: Chuckie Berumen Estimated blood loss (cc): 10 Specimens Removed/Pathology: other (Soft tissue for culture aerobic and anaerobic and proximal phalanx bone for pathology R/O Osteomyelitis) Condition: stable Disposition: other (Med / Surg Floor. )
[2020-11-16] MEDS ORDERED: NALOXONE HCL 0.4 MG/ML VIAL IV PRN (17:25)
[2020-11-16] MEDS ORDERED: KETOROLAC 15 MG/ML VIAL IV PRN (17:25)
[2020-11-16] MEDS ORDERED: ACETAMINOPHEN 1,000 MG/100 ML BAG IV PRN (17:25)
[2020-11-16] MEDS ORDERED: BUPIVACAINE 0.25% 50 ML VIAL IJ ONE (17:28)
[2020-11-16] MEDS ORDERED: DEXTROSE 5%-1/2NS 1,000 ML IV SCH (17:30)
[2020-11-16] MEDS: HYDROcodone/APAP 10/325MG TABLET PO PRN ×2 (18:36→23:07)
[2020-11-16] MEDS: DEXTROSE 5%-1/2NS 1,000 ML IV SCH (19:22)
[2020-11-16] MEDS: SENNOSIDES/DOCUSATE SODIUM 1 TAB TABLET PO SCH (21:05)
[2020-11-17] MEDS: HYDROcodone/APAP 10/325MG TABLET PO PRN ×3 (03:10→15:33)
[2020-11-17] MEDS: 0.9 % SODIUM CHLORIDE 10 ML SYRINGE IV SCH ×3 (04:37→21:05)
[2020-11-17] MEDS ORDERED: VANCOMYCIN PER PHARMACY IV SCH (07:02)
--- NOTE | 2020-11-17 07:06 | Internal Med Progress Note ---
SUBJECTIVE Subjective Patient information: Note initiated : 11/17/20 at 7:01 am Service Date, if different from initiated Date: [] Patient: Patricia Guerra a 55 y/o F admitted on 11/13/20 for Diabetic Right Foot Ulcer. Chief Complaint: [] Principal diagnosis: Sepsis CSSSI Right great toe. Onycomycosis toenails. Interval history: History of present illness: Ms. Guerra is a 55 year old F known diabetic who is currently homeless and living in a tent. Patient presented to [facility] ER for worsening right foot and big toe pain after she stepped on a glass sometime ago. She does not have access to protective footwear and moves around in flip-flops. She feels she stubbed on something that started the pain and swelling of the feet. She is known diabetic but poorly controlled and does not take any medications. She follows up with [facility] intermitt[facility]. Over the last couple of days pain and swelling has remarkably worsened with bluish discoloration of toe significance redness involving the foot. Initial work-up in the ER was consistent with severely swollen right great toe along with open wound on the dorsal aspect, sodium 126, potassium 3, creatinine 1.4, blood sugar 203 and a white count of 18.1. Patient was started on Rocephin after cultures were drawn. Due to lack of availability of beds hospitalist service was consulted at [facility] for transfer and further management. I received a phone description as above from Jonathan Bender ER physician at [facility]. Patient received at [facility] in stable state. At the time of my evaluation patient is alert and oriented. She endorses hi story as above. She denies fever, diarrhea, shaking chills, headache, photophobia. She extremely unkempt and appears disheveled. 11/[address] Berumen. Patient has no overnight event or new complaints. She is homeless and ran out of her medications months ago and has not been on any for quite a while. Nurse attempting to obtain old medication list. Sounds like she was on insulin. 11/15 No overnight or new complaints. MRI with osteo in the foot diffuse cellulitis. 11/16 Feeling well. No overnight or new complaints. Low mag will replace. 11/17 Patient had right great toe amputation yesterday. No overnight event or new complaints. Review of Systems: denies headache/fever/chills/nausea/vomiting/chest or abdominal pain/cough/dyspnea/diarrhea. Otherwise see above. Constitutional Vitals: Vital Signs Temp Pulse Resp BP Pulse Ox 98.4 F 88 16 133/85 96 11/17/20 03:02 11/17/20 03:02 11/17/20 03:02 11/17/20 03:02 11/17/20 03:02 Period Temp Pulse Resp BP Sys/Patel Pulse Ox Last 24 Hr 97.2 F-98.5 F 80-88 16-18 133-161/74-100 95-98 Intake and Output 11/16/20 11/17/20 11/17/20 21:59 05:59 13:59 Intake Total 1000 500 Output Total 550 475 Balance 450 25 Weight 84.64 kg Intake & Output: Intake & Output 11/16/20 11/17/20 11/17/20 21:59 05:59 13:59 Intake Total 1000 500 Output Total 550 475 Balance 450 25 Weight 84.64 kg Intake: IV 1000 Sodium Chloride 0.9% 1,000 ml @ 1000 50 mls/hr IV .Q20H [facility] Rx#: [id number] Oral 0 500 Output: Void Amount 550 475 Other: Urine Appearance Clear Clear Urine Color Light Patsy Dark Patsy Urine Odor Normal Normal Exam: general: Alert, Awake, No acute Distress Eyes/N/T: EOMI, Head/Neck: neck supple, CV: rrr, No murmurs, Pulm: Clear b/l, no wheezing/rhonchi/rales Abd: soft, nontender, +BS x4 Ext: no clubbing/cyanosis/edema. right great toe in dressings Neuro: Alert, no focal deficits, moves all extremities, Skin: warm/dry OBJ DATA Labs CBC & Chem 7: 11/16/20 05:24 11/17/20 06:08 Labs: Abnormal Lab Results 11/16/20 11/16/20 11/15/20 05:24 05:24 05:26 WBC 11.7 H RBC 3.60 L Hgb Hct 35.4 L MPV Lymph % (Auto) Archer # (Auto) 1.10 H Absolute Neutrophils 8.27 H ESR Sodium Glucose 112 H Calcium 8.2 L Phosphorus Magnesium 1.3 L Direct Bilirubin GGT 445 H AST 52 H ALT Alkaline Phosphatase 193 H Lactate Dehydrogenase C-Reactive Protein 9.50 H Albumin 2.3 L Globulin 4.3 H Albumin/Globulin Ratio 0.5 L Triglycerides 11/15/20 11/15/20 11/15/20 05:26 05:26 05:26 WBC 12.5 H RBC 3.71 L Hgb Hct MPV Lymph % (Auto) 13.0 L Archer # (Auto) 1.33 H Absolute Neutrophils 9.27 H ESR 84 H Sodium Glucose 108 H Calcium 8.0 L Phosphorus 2.2 L Magnesium 1.2 L Direct Bilirubin 0.3 H GGT 441 H AST 50 H ALT Alkaline Phosphatase 175 H Lactate Dehydrogenase C-Reactive Protein Albumin 2.3 L Globulin 4.2 H Albumin/Globulin Ratio 0.5 L Triglycerides 11/14/20 11/14/20 05:08 05:08 WBC 14.5 H RBC 3.57 L Hgb 11.9 L Hct 34.7 L MPV 10.9 H Lymph % (Auto) Archer # (Auto) 1.58 H Absolute Neutrophils 10.32 H ESR Sodium 132 L Glucose 118 H Calcium 7.8 L Phosphorus Magnesium 1.4 L Direct Bilirubin 0.4 H GGT 437 H AST 75 H ALT 41 H Alkaline Phosphatase 223 H Lactate Dehydrogenase 257 H C-Reactive Protein Albumin 2.1 L Globulin 3.8 H Albumin/Globulin Ratio 0.6 L Triglycerides 170 H Meds: Medications Acetaminophen (Acetaminophen 325 Mg Tablet) 650 mg PO Q4-6HP PRN; Protocol PRN Reason: Per Pain Protocol/Fever > 101 Last Admin: 11/16/20 07:39 Dose: 650 mg Documented by: Hydrocodone Bitart/Acetaminophen (Hydrocodone/Apap 10/325mg Tablet) 1 - 2 tab PO Q4HP PRN; Protocol PRN Reason: Per Pain Protocol Last Admin: 11/17/20 03:10 Dose: 2 tab Documented by: Bisacodyl (Bisacodyl 10 Mg Supp.Rect) 10 mg ND Q2-3DAYS PRN PRN Reason: Constipation Cyanocobalamin (Cyanocobalamin (Vitamin B-12) 500 Mcg Tablet) 1,000 mcg PO BID [facility] Stop: 11/17/20 21:01 Last Admin: 11/16/20 21:05 Dose: 1,000 mcg Documented by: Dextrose (Dextrose 50% 50 Ml Vial) 0 ml IV UD PRN PRN Reason: Hypoglycemia Diagnostic Test (Pha) (Accu-Chek 1 Each Strip) 1 each FS ACHS [facility] Last Admin: 11/16/20 21:04 Dose: 1 each Documented by: Glucose (Dextrose 31 Gm Oral.Susp) 15 gm PO PRN PRN PRN Reason: Hypoglycemia Heparin Sodium (Porcine) (Heparin 5,000 Unit/Ml Vial) 5,000 unit SQ Q12 [facility] Last Admin: 11/16/20 21:05 Dose: 5,000 unit Documented by: Hydralazine HCl (Hydralazine 20 Mg/Ml Vial) 10 mg IV Q4-6HP PRN PRN Reason: Hypertension Magnesium Sulfate (Magnesium Sulfate) 2 gm in 50 mls @ 50 mls/hr IV UD PRN PRN Reason: MG = or < 1.7 Last Infusion: 11/13/20 14:10 Dose: Infused Documented by: Ceftriaxone Sodium 2 gm/ (Dextrose) 50 mls @ 100 mls/hr IV DAILY [facility]; Protocol Last Infusion: 11/16/20 09:30 Dose: Infused Documented by: Acetaminophen (Ofirmev) 1,000 mg in 100 mls @ 200 mls/hr IV Q6HP PRN PRN Reason: Per Pain Protocol/Fever > 101 Dextrose/Sodium Chloride (Dextrose 5%-1/2ns Iv Solution) 1,000 mls @ 20 mls/hr IV .Q24H [facility] Last Admin: 11/16/20 19:22 Dose: 20 mls/hr Documented by: Insulin Glargine (Insulin Glargine, Human 1 Unit/0.01 Ml) 10 unit SQ DAILY [facility] Last Admin: 11/16/20 07:39 Dose: 10 units Documented by: Insulin Human Lispro (Insulin Lispro 1 Unit/0.01 Ml Unit) 0 unit SQ [facility]; Protocol Last Admin: 11/16/20 21:05 Dose: Not Given Documented by: Iron Carb/Multivit/[employer]/Folic Acid (Multivit,Ther Iron,Ca,Fa & Min 1 Tablet) 1 tab PO DAILY [facility] Last Admin: 11/16/20 07:40 Dose: 1 tab Documented by: Ketorolac Tromethamine (Ketorolac 15 Mg/Ml Vial) 15 mg IV Q6HP PRN; Protocol PRN Reason: Per Pain Protocol Stop: 11/18/20 17:29 Melatonin (Melatonin 3 Mg Tablet) 3 mg PO HSP PRN PRN Reason: Insomnia Metformin HCl (Metformin 500 Mg Tab.Xl.24h) 500 mg PO [facility] Last Admin: 11/16/20 07:40 Dose: 500 mg Documented by: Mupirocin (Mupirocin Oint 2% 22gm) 1 dose TOPICAL DAILY [facility] Last Admin: 11/16/20 10:30 Dose: Not Given Documented by: Naloxone HCl (Naloxone Hcl 0.4 Mg/Ml Vial) 0.1 mg IV Q2MIN PRN PRN Reason: Opiate Reversal Ondansetron HCl (Ondansetron 4 Mg Odt Tablet) 4 mg SL Q4-6HP PRN; Protocol PRN Reason: Nausea And Vomiting Ondansetron HCl (Ondansetron 4 Mg/2 Ml Vial) 4 mg IV Q4-6HP PRN; Protocol PRN Reason: Nausea And Vomiting Polyethylene Glycol (Polyethylene Glycol 3350 17 Gm Packet) 17 gm PO DAILYP PRN PRN Reason: Constipation Potassium Chloride (Potassium Chloride 20 Meq Packet) 40 meq PO DAILYP PRN PRN Reason: K+ < 3.5 Last Admin: 11/13/20 08:37 Dose: 40 meq Documented by: Senna/Docusate Sodium (Sennosides/Docusate Sodium 1 Tab Tablet) 1 tab PO HS [facility] Last Admin: 11/16/20 21:05 Dose: 1 tab Documented by: Sitagliptin Phosphate (Sitagliptin 100 Mg Tablet) 100 mg PO DAILY [facility] Last Admin: 11/16/20 07:40 Dose: 100 mg Documented by: Sodium Chloride (0.9 % Sodium Chloride 10 Ml Syringe) 10 ml IV Q8 [facility] Last Admin: 11/17/20 04:37 Dose: Not Given Documented by: Thiamine HCl (Thiamine 100 Mg Tablet) 100 mg PO DAILY [facility] Last Admin: 11/16/20 07:40 Dose: 100 mg Documented by: A/P Narrative A/P Narrative: A: *Diabetic right foot cellulitis and great to osteo: s/p amputation (11/17) -WC with Strep B and Staph aureus *severe sepsis with endorgan dysfunction: resolved -leukocytosis improved *Medication noncompliance: has been off meds for months *CKD II: *Anemia, likely chronic: *Hyponatremia/kalemia/mag: improved *DM, Poorly controlled diabetes. Has not been on her medications for months. -A1c 9.7 *Self-care deficit/homelessness: *Transaminitis: 2/2 fatty liver Plan: -two weeks IV Abx from amputation, awaiting final C&S -on rocephin (d/c), vanco -Ata/wound care following -Electrolyte replacement -SSI, started on metformin -restart home lisinopril -PT OT/case management consultation for safe discharge plan -ppx: heparin DNR Time Spent With Patient Time: Total time spent is greater than 50% in coordination of care (as documented) at patient's floor/unit and/or counseling patient: QUALITY VTE Deep Vein Thrombosis/Pulmonary Embolism Present on Admission: No
[2020-11-17] MEDS: INSULIN LISPRO 1 UNIT/0.01 ML UNIT SQ SCH ×4 (07:14→21:02)
--- NOTE | 2020-11-17 07:46 | Operative Note ---
DATE OF OPERATION: 11/16/2020 PREOPERATIVE DIAGNOSES: Sepsis syndrome, necrotizing skin and soft issue infection, right great toe extending up to proximal phalanx. POSTOPERATIVE DIAGNOSES: 1. Sepsis syndrome, necrotizing skin and soft tissue infection, right great toe extending up to proximal phalanx. 2. Patient with history of uncontrolled diabetes and sepsis. Poor compliance with monitoring and treatment of diabetes in the past. PROCEDURE: Right great toe amputation through MPJ. ANESTHESIA: Local and conscious sedation. ANESTHESIOLOGIST: [facility]. SURGEON: Chuckie Berumen MD FINDINGS: Necrotizing soft skin and soft tissue infection of the right great toe extending towards the proximal phalanx. COMPLICATIONS: None. ESTIMATED BLOOD LOSS: 10 mL. SPECIMENS REMOVED: Soft tissue for cultures, for aerobic and anaerobic bacteria and end of proximal phalanx for ruling out bone pathology, osteomyelitis. CONDITION: Stable. Operation was well tolerated. Patient was transferred to med-surgical floor. Postoperatively, I went out and spoke with the patient and her mother. Plan of treatment was discussed with Khushi, nurse taking care of this patient. PROCEDURE NOTE IN DETAIL: After obtaining informed consent, patient was taken to the operating room. Time out was called. She was already started on intravenous antibiotics on the floor. The right lower extremity was widely cleaned, prepped, and draped in the standard fashion. Intravenous analgesia and hemodynamic monitoring was initiated by Anesthesiologist, Dr. Araiza. We first proceeded to anesthetize the proximal skin and the subcutaneous tissue around the great toe, interdigital space between the first and second, and second and third toes using plain Marcaine 0.25% and 25-gauge needle. Altogether about 20 mL of the solution was used. We used a #15 scalpel blade and carried out an incision through the demarcated line. We incised the skin and subcutaneous tissues proximal to the line of demarcation. Sharp dissection was carried out. Hemostasis was achieved with electrocoagulation Bovie. The joint space was identified and entered. The remaining soft tissue attachments were taken down with Alvarez scissors and scalpel blade. Toe amputation was accomplished. The head of the first metatarsal bone appeared smooth, clean and not involved in the disease process. The soft tissue attachments around the head and shaft of the metatarsal bone were cleared and mobilized with blunt and sharp dissection using periosteal elevator, Alvarez scissors and DeBakey pickups. This allowed for mobilization of the soft tissues to perform approximation of the wound edges over the bone. Before this, we had irrigated the field with 3 liters of normal saline containing 800 mg of gentamicin. Wound base surface was inspected. There was no further evidence of any residual suppuration or necrotic tissue. Primary approximation of the wound edges was achieved with everting mattress sutures of #1 Prolene. The intervening spaces were closed with [id number] sutures of 2-0 nylon. Estimated blood loss about 10 mL. INSTRUMENT COUNTS: Count of swabs, instruments and needles were reported to be correct. Dressings consisted of Xeroform gauze, 4 x 4 gauze over the wound and in between the toes. This was held in place with Webril, Kerlix, Coban, and Tank bandages, respectively. Postoperatively, the patient will be given a walking air cast shoe. VD:hali Job ID: [id number] Doc ID: [id number] Chuckie Berumen MD MTDD
[2020-11-17 07:54] LABS: ALT/SGPT 29 U/L (<40); AST/SGOT 48 U/L (<32); Albumin 2.3 gm/dL (3.2-5.2); Albumin/Globulin Ratio 0.5 (1.0-2.3); Alkaline Phosphatase 167 U/L (39-117); Bilirubin,Direct 0.2 mg/dL (<0.3); Bilirubin,Total 0.4 mg/dL (0.1-1.0); Blood Urea Nitrogen 8 mg/dL (6-20); Calcium 7.9 mg/dL (8.6-10.4); Carbon Dioxide 24 mmol/L (22-30); Chloride 101 mmol/L (96-108); Globulin 4.3 gm/dL (2.2-3.7); Glomerular Filtration Rate 98; Glucose 97 mg/dL (70-105); Lactate Dehydrogenase 215 U/L (135-225); Phosphorous 2.9 mg/dL (2.5-4.5); Triglycerides 143 mg/dL (<150); Uric Acid 3.2 mg/dL (2.5-8.0)
[2020-11-17] MEDS: LISINOPRIL 5 MG TABLET PO SCH (08:18)
[2020-11-17] MEDS: CYANOCOBALAMIN (VITAMIN B-12) 500 MCG TABLET PO SCH ×2 (08:18→21:00)
[2020-11-17] MEDS: MULTIVIT,THER IRON,CA,FA & MIN 1 TABLET PO SCH (08:18)
[2020-11-17] MEDS: HEPARIN 5,000 UNIT/ML VIAL SQ SCH ×2 (08:18→21:02)
[2020-11-17] MEDS: metFORMIN 500 MG TAB.XL.24H PO SCH ×2 (08:18→17:03)
[2020-11-17] MEDS: THIAMINE 100 MG TABLET PO SCH (08:18)
[2020-11-17] MEDS: sitaGLIPtin 100 MG TABLET PO SCH (08:18)
[2020-11-17] MEDS: MAGNESIUM SULFATE 2 GM/50 ML BAG IV PRN (09:17)
[2020-11-17] MEDS: INSULIN GLARGINE, HUMAN 1 UNIT/0.01 ML SQ SCH (09:18)
[2020-11-17] MEDS: MUPIROCIN OINT 2% 22GM TOPICAL SCH (09:18)
[2020-11-17] MEDS ORDERED: VANCOMYCIN 1,000 MG in 0.9 % SODIUM CHLORIDE 250 ML IV SCH (10:00)
--- NOTE | 2020-11-17 11:58 | General Surgery Progress Note ---
SUBJECTIVE Subjective Patient information: Note initiated : 11/17/20 at 11:54 am Service Date, if different from initiated Date: [] Patient: Patricia Guerra 55 y/o F admitted on 11/13/20 for Diabetic Right Foot Ulcer. Chief Complaint: [] Principal diagnosis: Sepsis CSSSI Right great toe. Onycomycosis toenails. Additional PMFSH (Level 3 Only): Doing well. NO complaints. Uneventful post operative period. Constitutional Vitals: Vital Signs Temp Pulse Resp BP Pulse Ox 96.2 F L 79 16 133/87 98 11/17/20 08:17 11/17/20 08:17 11/17/20 08:17 11/17/20 08:17 11/17/20 08:17 Period Temp Pulse Resp BP Sys/Patel Pulse Ox Last 24 Hr 96.2 F-98.5 F 79-88 16-18 133-161/74-100 95-98 Intake and Output 11/16/20 11/17/20 11/17/20 21:59 05:59 13:59 Intake Total 1000 500 240 Output Total 550 475 250 Balance 450 25 -10 Weight 186 lb 9.6 oz Intake & Output: Intake & Output 11/16/20 11/17/20 11/17/20 21:59 05:59 13:59 Intake Total 1000 500 240 Output Total 550 475 250 Balance 450 25 -10 Weight 186 lb 9.6 oz Intake: IV 1000 Sodium Chloride 0.9% 1,000 ml @ 1000 50 mls/hr IV .Q20H [facility] Rx#: [id number] Oral 0 500 240 Output: Void Amount 550 475 250 Other: Urine Appearance Clear Clear Clear Urine Color Light Patsy Dark Patsy Dark Yellow Urine Odor Normal Normal Strong Exam: AVSS. No changes NASIM. L/E: Right foot dressings CDI. Exposed toes are warm and dry. Labs reviewed . Improving trends. A/P Narrative A/P Narrative: Assessment: Satisfactory post surgical progress. Plan: Continue current treatment. Await recommendations before D/C planing. Spoke with Jaylyn FARIAS and Dr. Dominguez Hospitalist. Time Spent With Patient Time: Total time spent is greater than 50% in coordination of care (as documented) at patient's floor/unit and/or counseling patient: Total time spent with greater than 50% in coordination of care (as documented) at patient's floor/unit and/or counseling patient:: 15 - 24 minutes
[2020-11-17] MEDS ORDERED: ceFAZolin 2 GM in DEXTROSE 5% IN WATER 50 ML IV SCH (15:15)
[2020-11-17] MEDS: ceFAZolin 1 GM VIAL IV SCH ×2 (15:41→22:05)
[2020-11-17] MEDS: MELATONIN 3 MG TABLET PO PRN (20:58)
[2020-11-17] MEDS: ACETAMINOPHEN 325 MG TABLET PO PRN (20:59)
[2020-11-17] MEDS: SENNOSIDES/DOCUSATE SODIUM 1 TAB TABLET PO SCH (20:59)
[2020-11-17] MEDS: DEXTROSE 5%-1/2NS 1,000 ML IV SCH (21:02)
[2020-11-18] MEDS: HYDROcodone/APAP 10/325MG TABLET PO PRN ×5 (00:22→19:26)
--- NOTE | 2020-11-18 06:24 | Internal Med Progress Note ---
SUBJECTIVE Subjective Patient information: Note initiated : 11/18/20 at 6:22 am Service Date, if different from initiated Date: [] Patient: Patricia Guerra a 55 y/o F admitted on 11/13/20 for Diabetic Right Foot Ulcer. Chief Complaint: [] Principal diagnosis: Sepsis CSSSI Right great toe. Onycomycosis toenails. Interval history: History of present illness: Ms. Guerra is a 55 year old F known diabetic who is currently homeless and living in a tent. Patient presented to [facility] ER for worsening right foot and big toe pain after she stepped on a glass sometime ago. She does not have access to protective footwear and moves around in flip-flops. She feels she stubbed on something that started the pain and swelling of the feet. She is known diabetic but poorly controlled and does not take any medications. She [facility] with [facility]. Over the last couple of days pain and swelling has remarkably worsened with bluish discoloration of toe significance redness involving the foot. Initial work-up in the ER was consistent with severely swollen right great toe along with open wound on the dorsal aspect, sodium 126, potassium 3, creatinine 1.4, blood sugar 203 and a white count of 18.1. Patient was started on Rocephin after cultures were drawn. Due to lack of availability of beds hospitalist service was consulted at [facility] for transfer and further management. I received a phone description as above from Jonathan Bender ER physician at [facility]. Patient received at [facility] in stable state. At the time of my evaluation patient is alert and oriented. She endorses hi story as above. She denies fever, diarrhea, shaking chills, headache, photophobia. She extremely unkempt and appears disheveled. 11/[address] Berumen. Patient has no overnight event or new complaints. She is homeless and ran out of her medications months ago and has not been on any for quite a while. Nurse attempting to obtain old medication list. Sounds like she was on insulin. 11/15 No overnight or new complaints. MRI with osteo in the foot diffuse cellulitis. 11/16 Feeling well. No overnight or new complaints. Low mag will replace. 11/17 Patient had right great toe amputation yesterday. No overnight event or new complaints. Patient doing well postop no overnight events. She does have some nausea yesterday but okay today. Review of Systems: denies headache/fever/chills/nausea/vomiting/chest or abdominal pain/cough/dyspnea/diarrhea. Otherwise see above. Constitutional Vitals: Vital Signs Temp Pulse Resp BP Pulse Ox 98.4 F 79 18 129/80 97 11/18/20 03:15 11/18/20 03:15 11/18/20 03:15 11/18/20 03:15 11/18/20 03:15 Period Temp Pulse Resp BP Sys/Patel Pulse Ox Last 24 Hr 96.2 F-99.1 F 79-87 16-20 125-148/79-93 96-98 Intake and Output 11/17/20 11/18/20 11/18/20 21:59 05:59 13:59 Intake Total 1180 350 Output Total 500 500 900 Balance 680 -150 -900 Weight 85.91 kg Intake & Output: Intake & Output 11/17/20 11/18/20 11/18/20 21:59 05:59 13:59 Intake Total 1180 350 Output Total 500 500 900 Balance 680 -150 -900 Weight 85.91 kg Intake: IV 700 Dextrose 5%-1/2Ns IV Solution 1 400 ,000 ml @ 20 mls/hr IV .Q24H [facility] Rx#:[id number] Vancomycin 1,000 mg In Sodium 250 Chloride 0.9% 250 ml @ 250 mls/ hr IV Q12H [facility] Rx#:[id number] Oral 480 350 Output: Void Amount 500 500 900 Other: Meal Dinner Percent of Meal Consumed 75% Feeding Ability Independent Urine Appearance Clear Urine Color Bright Yellow Urine Odor Normal Stool Size Large Stool Color Brown Stool Consistency Dry and Hard Formed # Bowel Movements 1 Exam: general: Alert, Awake, No acute Distress Eyes/N/T: EOMI, Head/Neck: neck supple, CV: rrr, No murmurs, Pulm: Clear b/l, no wheezing/rhonchi/rales Abd: soft, nontender, +BS x4 Ext: no clubbing/cyanosis/edema. right great toe in dressings Neuro: Alert, no focal deficits, moves all extremities, Skin: warm/dry OBJ DATA Labs CBC & Chem 7: 11/16/20 05:24 11/17/20 06:08 Labs: Abnormal Lab Results 06/15/21 06/14/21 06/14/21 06:08 05:24 05:24 WBC 11.7 H RBC 3.60 L Hct 35.4 L Lymph % (Auto) [place] # (Auto) 1.10 H Absolute Neutrophils 8.27 H ESR Glucose 112 H Calcium 7.9 L 8.2 L Phosphorus Magnesium 1.5 L 1.3 L Direct Bilirubin GGT 402 H 445 H AST 48 H 52 H Alkaline Phosphatase 167 H 193 H C-Reactive Protein 5.70 H Albumin 2.3 L 2.3 L Globulin 4.3 H 4.3 H Albumin/Globulin Ratio 0.5 L 0.5 L 11/15/20 11/15/20 11/15/20 05:26 05:26 05:26 WBC RBC Hct Lymph % (Auto) [place] # (Auto) Absolute Neutrophils ESR 84 H Glucose 108 H Calcium 8.0 L Phosphorus 2.2 L Magnesium 1.2 L Direct Bilirubin 0.3 H GGT 441 H AST 50 H Alkaline Phosphatase 175 H C-Reactive Protein 9.50 H Albumin 2.3 L Globulin 4.2 H Albumin/Globulin Ratio 0.5 L 11/15/20 05:26 WBC 12.5 H RBC 3.71 L Hct Lymph % (Auto) 13.0 L [place] # (Auto) 1.33 H Absolute Neutrophils 9.27 H ESR Glucose Calcium Phosphorus Magnesium Direct Bilirubin GGT AST Alkaline Phosphatase C-Reactive Protein Albumin Globulin Albumin/Globulin Ratio Meds: Medications Acetaminophen (Acetaminophen 325 Mg Tablet) 650 mg PO Q4-6HP PRN; Protocol PRN Reason: Per Pain Protocol/Fever > 101 Last Admin: 11/17/20 20:59 Dose: 650 mg Documented by: Hydrocodone Bitart/Acetaminophen (Hydrocodone/Apap 10/325mg Tablet) 1 - 2 tab PO Q4HP PRN; Protocol PRN Reason: Per Pain Protocol Last Admin: 11/18/20 02:23 Dose: 1 tab Documented by: Bisacodyl (Bisacodyl 10 Mg Supp.Rect) 10 mg [place] Q2-3DAYS PRN PRN Reason: Constipation Cefazolin Sodium (Cefazolin 1 Gm Vial) 2 gm IV Q8H [facility] Last Admin: 11/17/20 22:05 Dose: 2 gm Documented by: Dextrose (Dextrose 50% 50 Ml Vial) 0 ml IV UD PRN PRN Reason: Hypoglycemia Diagnostic Test (Pha) (Accu-Chek 1 Each Strip) 1 each FS ACHS [facility] Last Admin: 11/17/20 21:02 Dose: 1 each Documented by: Glucose (Dextrose 31 Gm Oral.Susp) 15 gm PO PRN PRN PRN Reason: Hypoglycemia Heparin Sodium (Porcine) (Heparin 5,000 Unit/Ml Vial) 5,000 unit SQ Q12 [facility] Last Admin: 11/17/20 21:02 Dose: 5,000 unit Documented by: Hydralazine HCl (Hydralazine 20 Mg/Ml Vial) 10 mg IV Q4-6HP PRN PRN Reason: Hypertension Magnesium Sulfate (Magnesium Sulfate) 2 gm in 50 mls @ 50 mls/hr IV UD PRN PRN Reason: MG = or < 1.7 Last Infusion: 11/17/20 18:37 Dose: Infused Documented by: Acetaminophen (Ofirmev) 1,000 mg in 100 mls @ 200 mls/hr IV Q6HP PRN PRN Reason: Per Pain Protocol/Fever > 101 Insulin Glargine (Insulin Glargine, Human 1 Unit/0.01 Ml) 10 unit SQ DAILY [facility] Last Admin: 11/17/20 09:18 Dose: 10 units Documented by: Insulin Human Lispro (Insulin Lispro 1 Unit/0.01 Ml Unit) 0 unit SQ [facility]; Protocol Last Admin: 11/17/20 21:02 Dose: Not Given Documented by: Iron Carb/Multivit/Orange/Folic Acid (Multivit,Ther Iron,Ca,Fa & Min 1 Tablet) 1 tab PO DAILY [facility] Last Admin: 11/17/20 08:18 Dose: 1 tab Documented by: Ketorolac Tromethamine (Ketorolac 15 Mg/Ml Vial) 15 mg IV Q6HP PRN; Protocol PRN Reason: Per Pain Protocol Stop: 11/18/20 17:29 Last Admin: 11/17/20 17:03 Dose: 15 mg Documented by: Lisinopril (Lisinopril 5 Mg Tablet) 5 mg PO DAILY [facility] Last Admin: 11/17/20 08:18 Dose: 5 mg Documented by: Melatonin (Melatonin 3 Mg Tablet) 3 mg PO HSP PRN PRN Reason: Insomnia Last Admin: 11/17/20 20:58 Dose: 3 mg Documented by: Metformin HCl (Metformin 500 Mg Tab.Xl.24h) 500 mg PO BIDCC [facility] Last Admin: 11/17/20 17:03 Dose: 500 mg Documented by: Mupirocin (Mupirocin Oint 2% 22gm) 1 dose TOPICAL DAILY [facility] Last Admin: 11/17/20 09:18 Dose: 1 dose Documented by: Naloxone HCl (Naloxone Hcl 0.4 Mg/Ml Vial) 0.1 mg IV Q2MIN PRN PRN Reason: Opiate Reversal Ondansetron HCl (Ondansetron 4 Mg Odt Tablet) 4 mg SL Q4-6HP PRN; Protocol PRN Reason: Nausea And Vomiting Ondansetron HCl (Ondansetron 4 Mg/2 Ml Vial) 4 mg IV Q4-6HP PRN; Protocol PRN Reason: Nausea And Vomiting Polyethylene Glycol (Polyethylene Glycol 3350 17 Gm Packet) 17 gm PO DAILYP PRN PRN Reason: Constipation Potassium Chloride (Potassium Chloride 20 Meq Packet) 40 meq PO DAILYP PRN PRN Reason: K+ < 3.5 Last Admin: 11/13/20 08:37 Dose: 40 meq Documented by: Senna/Docusate Sodium (Sennosides/Docusate Sodium 1 Tab Tablet) 1 tab PO HS [facility] Last Admin: 11/17/20 20:59 Dose: 1 tab Documented by: Sitagliptin Phosphate (Sitagliptin 100 Mg Tablet) 100 mg PO DAILY [facility] Last Admin: 11/17/20 08:18 Dose: 100 mg Documented by: Sodium Chloride (0.9 % Sodium Chloride 10 Ml Syringe) 10 ml IV Q8 [facility] Last Admin: 11/17/20 21:05 Dose: 10 ml Documented by: Thiamine HCl (Thiamine 100 Mg Tablet) 100 mg PO DAILY [facility] Last Admin: 11/17/20 08:18 Dose: 100 mg Documented by: A/P Narrative A/P Narrative: A: *Diabetic right foot cellulitis and great to osteo: s/p amputation (11/17) -WC with Strep B and MSSA *severe sepsis with endorgan dysfunction: resolved -leukocytosis improved *Medication noncompliance: has been off meds for months *CKD II: *Anemia, likely chronic: *Hyponatremia/kalemia/mag: improved *DM, Poorly controlled diabetes. Has not been on her medications for months. -A1c 9.7 *Self-care deficit/homelessness: *Transaminitis: 2/2 fatty liver Plan: -two weeks IV Abx from amputation, awaiting final C&S -on cefazolin -Ata/wound care following -Electrolyte replacement -SSI, started on metformin -restart home lisinopril -PT OT/case management consultation for safe discharge plan, awaiting placement -ppx: heparin DNR Time Spent With Patient Time: Total time spent is greater than 50% in coordination of care (as documented) at patient's floor/unit and/or counseling patient: QUALITY VTE Deep Vein Thrombosis/Pulmonary Embolism Present on Admission: No
[2020-11-18] MEDS: ceFAZolin 1 GM VIAL IV SCH ×3 (06:45→22:34)
[2020-11-18] MEDS: 0.9 % SODIUM CHLORIDE 10 ML SYRINGE IV SCH ×4 (06:45→21:10)
[2020-11-18] MEDS: INSULIN LISPRO 1 UNIT/0.01 ML UNIT SQ SCH ×4 (07:00→20:43)
[2020-11-18] MEDS: metFORMIN 500 MG TAB.XL.24H PO SCH ×2 (08:17→17:44)
[2020-11-18] MEDS: HEPARIN 5,000 UNIT/ML VIAL SQ SCH ×2 (09:02→20:42)
[2020-11-18] MEDS: LISINOPRIL 5 MG TABLET PO SCH (09:02)
[2020-11-18] MEDS: INSULIN GLARGINE, HUMAN 1 UNIT/0.01 ML SQ SCH (09:02)
[2020-11-18] MEDS: MUPIROCIN OINT 2% 22GM TOPICAL SCH (09:02)
[2020-11-18] MEDS: sitaGLIPtin 100 MG TABLET PO SCH (09:03)
[2020-11-18] MEDS: MULTIVIT,THER IRON,CA,FA & MIN 1 TABLET PO SCH (09:03)
[2020-11-18] MEDS: THIAMINE 100 MG TABLET PO SCH (09:03)
--- NOTE | 2020-11-18 10:50 | General Surgery Progress Note ---
SUBJECTIVE Subjective Patient information: Note initiated : 11/18/20 at 10:39 am Service Date, if different from initiated Date: [] Patient: Patricia Guerra 55 y/o F admitted on 11/13/20 for Diabetic Right Foot Ulcer. Chief Complaint: [] Principal diagnosis: Sepsis CSSSI Right great toe. Onycomycosis toenails. Constitutional Vitals: Vital Signs Temp Pulse Resp BP Pulse Ox 96.4 F L 80 18 131/82 96 11/18/20 07:58 11/18/20 07:58 11/18/20 07:58 11/18/20 07:58 11/18/20 07:58 Period Temp Pulse Resp BP Sys/Patel Pulse Ox Last 24 Hr 96.4 F-99.1 F 79-87 16-20 125-148/79-93 96-98 Intake and Output 11/17/20 11/18/20 11/18/20 21:59 05:59 13:59 Intake Total 1180 350 120 Output Total 331 698 2864 Balance 680 -150 -1080 Weight 189 lb 6.4 oz Intake & Output: Intake & Output 11/17/20 11/18/20 11/18/20 21:59 05:59 13:59 Intake Total 1180 350 120 Output Total 163 925 6498 Balance 680 -150 -1080 Weight 189 lb 6.4 oz Intake: IV 700 Dextrose 5%-1/2Ns IV Solution 1 400 ,000 ml @ 20 mls/hr IV .Q24H [facility] Rx#:[id number] Vancomycin 1,000 mg In Sodium 250 Chloride 0.9% 250 ml @ 250 mls/ hr IV Q12H [facility] Rx#:[id number] Oral 480 350 120 Output: Void Amount [phone] Other: Meal Dinner Breakfast Percent of Meal Consumed 75% 100% Feeding Ability Independent Urine Appearance Clear Urine Color Bright Yellow Urine Odor Normal Stool Size Large Stool Color Brown Stool Consistency Dry and Hard Formed # Bowel Movements 1 General appearance: average body habitus, cooperative and no acute distress Exam: AVSS. Comfortable and Cooperative No changes in NASIM. Post surgery Dressings changed Rt foot Wound edges are well approximated. Resolving post surgery inflammation. Will continue with local wound care. Betadine swab, Adaptic, gauze and LANNY QD Heel weight bearing OD Start offloading with Air Cast shoe. Physical Therapy advise for walking. OR wound c/s ribera sensitive staph. Diabetes education. ANTIBIOTICS per hospitalist. If d/c to Rehab, F/U at wound center in 1 week. A/P Narrative A/P Narrative: Assessment: Satisfactory post surgical progress. Plan: Progress reviewed with Jaylyn Banks RN I/C and Physical Therapy See detailed note above. If discharged f/u at wound center in ONE week. Time Spent With Patient Time: Total time spent is greater than 50% in coordination of care (as documented) at patient's floor/unit and/or counseling patient: Total time spent with greater than 50% in coordination of care (as documented) at patient's floor/unit and/or counseling patient:: 25 - 35 minutes
--- NOTE | 2020-11-18 10:53 | General Surgery Progress Note ---
SUBJECTIVE Subjective Patient information: Note initiated : 11/17/20 at 11:59 am Service Date, if different from initiated Date: [] Patient: Patricia Guerra 55 y/o F admitted on 11/13/20 for Diabetic Right Foot Ulcer. Chief Complaint: [] Principal diagnosis: Sepsis CSSSI Right great toe. Onycomycosis toenails. Constitutional Vitals: Vital Signs Temp Pulse Resp BP Pulse Ox 96.2 F L 79 16 133/87 98 11/17/20 08:17 11/17/20 08:17 11/17/20 08:17 11/17/20 08:17 11/17/20 08:17 Period Temp Pulse Resp BP Sys/Patel Pulse Ox Last 24 Hr 96.2 F-98.5 F 79-88 16-18 133-161/74-100 95-98 Intake and Output 11/16/20 11/17/20 11/17/20 21:59 05:59 13:59 Intake Total 1000 500 240 Output Total 550 475 250 Balance 450 25 -10 Weight 186 lb 9.6 oz Intake & Output: Intake & Output 11/16/20 11/17/20 11/17/20 21:59 05:59 13:59 Intake Total 1000 500 240 Output Total 550 475 250 Balance 450 25 -10 Weight 186 lb 9.6 oz Intake: IV 1000 Sodium Chloride 0.9% 1,000 ml @ 1000 50 mls/hr IV .Q20H [facility] Rx#: [id number] Oral 0 500 240 Output: Void Amount 550 475 250 Other: Urine Appearance Clear Clear Clear Urine Color Light Patsy Dark Patsy Dark Yellow Urine Odor Normal Normal Strong Exam: Stable post operatively. Continue monitoring. Dressings CDI A/P Narrative A/P Narrative: Assessment: Satisfactory post surgical progress. For change of dressing on 11/18/2020 Plan: Continue present management. Time Spent With Patient Time: Total time spent is greater than 50% in coordination of care (as documented) at patient's floor/unit and/or counseling patient: Total time spent with greater than 50% in coordination of care (as documented) at patient's floor/unit and/or counseling patient:: 15 - 24 minutes
[2020-11-18] MEDS: SENNOSIDES/DOCUSATE SODIUM 1 TAB TABLET PO SCH (20:42)
[2020-11-18] MEDS: MELATONIN 3 MG TABLET PO PRN (20:49)
[2020-11-19] MEDS: HYDROcodone/APAP 10/325MG TABLET PO PRN ×5 (00:32→23:42)
[2020-11-19] MEDS: 0.9 % SODIUM CHLORIDE 10 ML SYRINGE IV SCH ×5 (06:12→21:50)
[2020-11-19] MEDS: ceFAZolin 1 GM VIAL IV SCH ×3 (06:13→21:50)
--- NOTE | 2020-11-19 07:13 | Internal Med Progress Note ---
SUBJECTIVE Subjective Patient information: Note initiated : 11/19/20 at 7:10 am Service Date, if different from initiated Date: [] Patient: Patricia Guerra a 55 y/o F admitted on 11/13/20 for Diabetic Right Foot Ulcer. Chief Complaint: [] Principal diagnosis: Sepsis CSSSI Right great toe. Onycomycosis toenails. Interval history: History of present illness: Ms. Guerra is a 55 year old F known diabetic who is currently homeless and living in a tent. Patient presented to [facility] ER for worsening right foot and big toe pain after she stepped on a glass sometime ago. She does not have access to protective footwear and moves around in flip-flops. She feels she stubbed on something that started the pain and swelling of the feet. She is known diabetic but poorly controlled and does not take any medications. She follows up with [facility]. Over the last couple of days pain and swelling has remarkably worsened with bluish discoloration of toe significance redness involving the foot. Initial work-up in the ER was consistent with severely swollen right great toe along with open wound on the dorsal aspect, sodium 126, potassium 3, creatinine 1.4, blood sugar 203 and a white count of 18.1. Patient was started on Rocephin after cultures were drawn. Due to lack of availability of beds hospitalist service was consulted at [facility] for transfer and further management. I received a phone description as above from Jonathan Bender ER physician at [facility]. Patient received at [facility] in stable state. At the time of my evaluation patient is alert and oriented. She endorses hi story as above. She denies fever, diarrhea, shaking chills, headache, photophobia. She extremely unkempt and appears disheveled. 11/[address] Berumen. Patient has no overnight event or new complaints. She is homeless and ran out of her medications months ago and has not been on any for quite a while. Nurse attempting to obtain old medication list. Sounds like she was on insulin. 11/15 No overnight or new complaints. MRI with osteo in the foot diffuse cellulitis. 11/16 Feeling well. No overnight or new complaints. Low mag will replace. 11/17 Patient had right great toe amputation yesterday. No overnight event or new complaints. 11/18 Patient doing well postop no overnight events. She does have some nausea yesterday but okay today. 11/19 Doing well again no overnight event or new complaints. Waiting for placement. Review of Systems: denies headache/fever/chills/nausea/vomiting/chest or abdominal pain/cough/dyspnea/diarrhea. Otherwise see above. Constitutional Vitals: Vital Signs Temp Pulse Resp BP Pulse Ox 98.3 F 95 H 18 147/85 97 11/19/20 03:25 11/19/20 03:25 11/19/20 03:25 11/19/20 03:25 11/19/20 03:25 Period Temp Pulse Resp BP Sys/Patel Pulse Ox Last 24 Hr 96.4 F-98.4 F 79-95 18-20 131-150/82-96 96-98 Intake and Output 11/18/20 11/19/20 11/19/20 21:59 05:59 13:59 Intake Total 1600 800 Output Total 550 Balance 1050 800 Weight 87.135 kg Intake & Output: Intake & Output 11/18/20 11/19/20 11/19/20 21:59 05:59 13:59 Intake Total 1600 800 Output Total 550 Balance 1050 800 Weight 87.135 kg Intake: Oral 1600 800 Output: Void Amount 550 Other: Meal Dinner Percent of Meal Consumed 100% Stool Size Small # Voids 1 1 # Bowel Movements 1 Exam: general: Alert, Awake, No acute Distress Eyes/N/T: EOMI, Head/Neck: neck supple, CV: rrr, No murmurs, Pulm: Clear b/l, no wheezing/rhonchi/rales Abd: soft, nontender, +BS x4 Ext: no clubbing/cyanosis/edema. right great toe in dressings Neuro: Alert, no focal deficits, moves all extremities, Skin: warm/dry OBJ DATA Labs CBC & Chem 7: 11/16/20 05:24 11/17/20 06:08 Labs: Abnormal Lab Results 11/17/20 11/16/20 06:08 05:24 Glucose 112 H Calcium 7.9 L 8.2 L Magnesium 1.5 L 1.3 L GGT 402 H 445 H AST 48 H 52 H Alkaline Phosphatase 167 H 193 H C-Reactive Protein 5.70 H Albumin 2.3 L 2.3 L Globulin 4.3 H 4.3 H Albumin/Globulin Ratio 0.5 L 0.5 L Meds: Medications Acetaminophen (Acetaminophen 325 Mg Tablet) 650 mg PO Q4-6HP PRN; Protocol PRN Reason: Per Pain Protocol/Fever > 101 Last Admin: 11/17/20 20:59 Dose: 650 mg Documented by: Hydrocodone Bitart/Acetaminophen (Hydrocodone/Apap 10/325mg Tablet) 1 - 2 tab PO Q4HP PRN; Protocol PRN Reason: Per Pain Protocol Last Admin: 11/19/20 00:32 Dose: 2 tab Documented by: Bisacodyl (Bisacodyl 10 Mg Supp.Rect) 10 mg [place] Q2-3DAYS PRN PRN Reason: Constipation Cefazolin Sodium (Cefazolin 1 Gm Vial) 2 gm IV Q8H [facility] Last Admin: 11/19/20 06:13 Dose: 2 gm Documented by: Dextrose (Dextrose 50% 50 Ml Vial) 0 ml IV UD PRN PRN Reason: Hypoglycemia Diagnostic Test (Pha) (Accu-Chek 1 Each Strip) 1 each FS ACHS [facility] Last Admin: 11/18/20 20:43 Dose: 1 each Documented by: Glucose (Dextrose 31 Gm Oral.Susp) 15 gm PO PRN PRN PRN Reason: Hypoglycemia Heparin Sodium (Porcine) (Heparin 5,000 Unit/Ml Vial) 5,000 unit SQ Q12 [facility] Last Admin: 11/18/20 20:42 Dose: 5,000 unit Documented by: Heparin Sodium (Porcine) (Heparin Flush 10 Units/Ml 5 Ml Syringe) 2 ml IV Q12 [facility] Last Admin: 11/18/20 20:42 Dose: 2 ml Documented by: Hydralazine HCl (Hydralazine 20 Mg/Ml Vial) 10 mg IV Q4-6HP PRN PRN Reason: Hypertension Magnesium Sulfate (Magnesium Sulfate) 2 gm in 50 mls @ 50 mls/hr IV UD PRN PRN Reason: MG = or < 1.7 Last Infusion: 11/17/20 18:37 Dose: Infused Documented by: Acetaminophen (Ofirmev) 1,000 mg in 100 mls @ 200 mls/hr IV Q6HP PRN PRN Reason: Per Pain Protocol/Fever > 101 Insulin Glargine (Insulin Glargine, Human 1 Unit/0.01 Ml) 10 unit SQ DAILY [facility] Last Admin: 11/18/20 09:02 Dose: 10 units Documented by: Insulin Human Lispro (Insulin Lispro 1 Unit/0.01 Ml Unit) 0 unit SQ [facility]; Protocol Last Admin: 11/18/20 20:43 Dose: Not Given Documented by: Iron Carb/Multivit/[place]/Folic Acid (Multivit,Ther Iron,Ca,Fa & Min 1 Tablet) 1 tab PO DAILY [facility] Last Admin: 11/18/20 09:03 Dose: 1 tab Documented by: Lisinopril (Lisinopril 5 Mg Tablet) 5 mg PO DAILY [facility] Last Admin: 11/18/20 09:02 Dose: 5 mg Documented by: Melatonin (Melatonin 3 Mg Tablet) 3 mg PO HSP PRN PRN Reason: Insomnia Last Admin: 11/18/20 20:49 Dose: 3 mg Documented by: Metformin HCl (Metformin 500 Mg Tab.Xl.24h) 500 mg PO BIDCC [facility] Last Admin: 11/18/20 17:44 Dose: 500 mg Documented by: Mupirocin (Mupirocin Oint 2% 22gm) 1 dose TOPICAL DAILY [facility] Last Admin: 11/18/20 09:02 Dose: 1 dose Documented by: Naloxone HCl (Naloxone Hcl 0.4 Mg/Ml Vial) 0.1 mg IV Q2MIN PRN PRN Reason: Opiate Reversal Ondansetron HCl (Ondansetron 4 Mg Odt Tablet) 4 mg SL Q4-6HP PRN; Protocol PRN Reason: Nausea And Vomiting Ondansetron HCl (Ondansetron 4 Mg/2 Ml Vial) 4 mg IV Q4-6HP PRN; Protocol PRN Reason: Nausea And Vomiting Polyethylene Glycol (Polyethylene Glycol 3350 17 Gm Packet) 17 gm PO DAILYP PRN PRN Reason: Constipation Potassium Chloride (Potassium Chloride 20 Meq Packet) 40 meq PO DAILYP PRN PRN Reason: K+ < 3.5 Last Admin: 11/13/20 08:37 Dose: 40 meq Documented by: Senna/Docusate Sodium (Sennosides/Docusate Sodium 1 Tab Tablet) 1 tab PO HS [facility] Last Admin: 11/18/20 20:42 Dose: 1 tab Documented by: Sitagliptin Phosphate (Sitagliptin 100 Mg Tablet) 100 mg PO DAILY [facility] Last Admin: 11/18/20 09:03 Dose: 100 mg Documented by: Sodium Chloride (0.9 % Sodium Chloride 10 Ml Syringe) 10 ml IV Q8 [facility] Last Admin: 11/19/20 06:12 Dose: 10 ml Documented by: Sodium Chloride (0.9 % Sodium Chloride 10 Ml Syringe) 10 ml IV Q12 [facility] Last Admin: 11/18/20 21:10 Dose: Not Given Documented by: Thiamine HCl (Thiamine 100 Mg Tablet) 100 mg PO DAILY [facility] Last Admin: 11/18/20 09:03 Dose: 100 mg Documented by: A/P Narrative A/P Narrative: A: *Diabetic right foot cellulitis and great to osteo: s/p amputation (11/17) -WC with Strep B and MSSA *severe sepsis with endorgan dysfunction: resolved *Medication noncompliance: has been off meds for months *CKD II: *Anemia, likely chronic: *Hyponatremia/kalemia/mag: improved *DM, Poorly controlled diabetes. Has not been on her medications for months. -A1c 9.7 *Self-care deficit/homelessness: *Transaminitis: 2/2 fatty liver, improved Plan: -two weeks IV Abx from amputation (finish on 11/30/2020) -on cefazolin -Ata/wound care following -Electrolyte replacement -SSI, started on metformin -restart home lisinopril -will need scripts for home med upon d/c -PT OT/case management consultation for safe discharge plan, awaiting placement -ppx: heparin DNR Time Spent With Patient Time: Total time spent is greater than 50% in coordination of care (as documented) at patient's floor/unit and/or counseling patient: QUALITY VTE Deep Vein Thrombosis/Pulmonary Embolism Present on Admission: No
[2020-11-19] MEDS: INSULIN LISPRO 1 UNIT/0.01 ML UNIT SQ SCH ×4 (07:27→22:25)
[2020-11-19] MEDS: HEPARIN 5,000 UNIT/ML VIAL SQ SCH ×2 (08:28→21:50)
[2020-11-19] MEDS: INSULIN GLARGINE, HUMAN 1 UNIT/0.01 ML SQ SCH (08:29)
[2020-11-19] MEDS: sitaGLIPtin 100 MG TABLET PO SCH (08:30)
[2020-11-19] MEDS: metFORMIN 500 MG TAB.XL.24H PO SCH ×2 (08:30→16:59)
[2020-11-19] MEDS: MULTIVIT,THER IRON,CA,FA & MIN 1 TABLET PO SCH (08:30)
[2020-11-19] MEDS: MUPIROCIN OINT 2% 22GM TOPICAL SCH (08:30)
[2020-11-19] MEDS: THIAMINE 100 MG TABLET PO SCH (08:30)
[2020-11-19] MEDS: LISINOPRIL 5 MG TABLET PO SCH (08:30)
[2020-11-19 08:51] LABS: Blood Urea Nitrogen 9 mg/dL (6-20); Calcium 8.2 mg/dL (8.6-10.4); Carbon Dioxide 25 mmol/L (22-30); Chloride 102 mmol/L (96-108); Glomerular Filtration Rate 98; Glucose 98 mg/dL (70-105); Phosphorous 3.2 mg/dL (2.5-4.5)
[2020-11-19] MEDS ORDERED: MAGNESIUM SULFATE 2 GM/50 ML BAG IV ONE (10:05)
--- NOTE | 2020-11-19 14:40 | Internal Med Progress Note ---
SUBJECTIVE Subjective Patient information: Note initiated : 11/20/20 at 2:34 pm Service Date, if different from initiated Date: [] Patient: Patricia Guerra a 55 y/o F admitted on 11/13/20 for Diabetic Right Foot Ulcer. Chief Complaint: [] Principal diagnosis: Sepsis CSSSI Right great toe. Onycomycosis toenails. Interval history: History of present illness: Ms. Guerra is a 55 year old F known diabetic who is currently homeless and living in a tent. Patient presented to [facility] ER for worsening right foot and big toe pain after she stepped on a glass sometime ago. She does not have access to protective footwear and moves around in flip-flops. She feels she stubbed on something that started the pain and swelling of the feet. She is known diabetic but poorly controlled and does not take any medications. She follows up with [facility]. Over the last couple of days pain and swelling has remarkably worsened with bluish discoloration of toe significance redness involving the foot. Initial work-up in the ER was consistent with severely swollen right great toe along with open wound on the dorsal aspect, sodium 126, potassium 3, creatinine 1.4, blood sugar 203 and a white count of 18.1. Patient was started on Rocephin after cultures were drawn. Due to lack of availability of beds hospitalist service was consulted at [facility] for transfer and further management. I received a phone description as above from Jonathan Bender ER physician at [facility]. Patient received at [facility] in stable state. At the time of my evaluation patient is alert and oriented. She endorses hi story as above. She denies fever, diarrhea, shaking chills, headache, photophobia. She extremely unkempt and appears disheveled. 11/[address] Berumen. Patient has no overnight event or new complaints. She is homeless and ran out of her medications months ago and has not been on any for quite a while. Nurse attempting to obtain old medication list. Sounds like she was on insulin. 11/15 No overnight or new complaints. MRI with osteo in the foot diffuse cellulitis. 11/16 Feeling well. No overnight or new complaints. Low mag will replace. 11/17 Patient had right great toe amputation yesterday. No overnight event or new complaints. 11/18 Patient doing well postop no overnight events. She does have some nausea yesterday but okay today. 11/19 Doing well again no overnight event or new complaints. Waiting for placement. Review of Systems: denies headache/fever/chills/nausea/vomiting/chest or abdominal pain/cough/dyspnea/diarrhea. Otherwise see above. Constitutional Vitals: Vital Signs Temp Pulse Resp BP Pulse Ox 97.0 F 99 H 16 143/92 96 11/19/20 12:00 11/19/20 12:00 11/19/20 12:00 11/19/20 12:00 11/19/20 12:00 Period Temp Pulse Resp BP Sys/Patel Pulse Ox Last 24 Hr 97.0 F-98.4 F 81-99 16-20 121-150/81-96 96-98 Intake and Output 11/19/20 11/19/20 11/19/20 05:59 13:59 21:59 Intake Total 800 1090 Output Total 1100 Balance 800 -10 Intake & Output: Intake & Output 11/19/20 11/19/20 11/19/20 05:59 13:59 21:59 Intake Total 800 1090 Output Total 1100 Balance 800 -10 Intake: IV 50 Oral 800 1040 Output: Void Amount 1100 Other: Meal Breakfast Percent of Meal Consumed 100% Feeding Ability Independent # Voids 1 Exam: general: Alert, Awake, No acute Distress Eyes/N/T: EOMI, Head/Neck: neck supple, CV: rrr, No murmurs, Pulm: Clear b/l, no wheezing/rhonchi/rales Abd: soft, nontender, +BS x4 Ext: no clubbing/cyanosis/edema. right great toe in dressings Neuro: Alert, no focal deficits, moves all extremities, Skin: warm/dry OBJ DATA Labs CBC & Chem 7: 11/16/20 05:24 11/19/20 07:42 Labs: Abnormal Lab Results 11/19/20 11/17/20 07:42 06:08 Anion Gap 7.0 L Calcium 8.2 L 7.9 L Magnesium 1.5 L 1.5 L GGT 402 H AST 48 H Alkaline Phosphatase 167 H C-Reactive Protein 5.70 H Albumin 2.3 L Globulin 4.3 H Albumin/Globulin Ratio 0.5 L Meds: Medications Acetaminophen (Acetaminophen 325 Mg Tablet) 650 mg PO Q4-6HP PRN; Protocol PRN Reason: Per Pain Protocol/Fever > 101 Last Admin: 11/17/20 20:59 Dose: 650 mg Documented by: Hydrocodone Bitart/Acetaminophen (Hydrocodone/Apap 10/325mg Tablet) 1 - 2 tab PO Q4HP PRN; Protocol PRN Reason: Per Pain Protocol Last Admin: 11/19/20 13:09 Dose: 2 tab Documented by: Bisacodyl (Bisacodyl 10 Mg Supp.Rect) 10 mg WV Q2-3DAYS PRN PRN Reason: Constipation Cefazolin Sodium (Cefazolin 1 Gm Vial) 2 gm IV Q8H [facility] Last Admin: 11/19/20 13:57 Dose: 2 gm Documented by: Dextrose (Dextrose 50% 50 Ml Vial) 0 ml IV UD PRN PRN Reason: Hypoglycemia Diagnostic Test (Pha) (Accu-Chek 1 Each Strip) 1 each FS ACHS [facility] Last Admin: 11/19/20 11:41 Dose: 1 each Documented by: Glucose (Dextrose 31 Gm Oral.Susp) 15 gm PO PRN PRN PRN Reason: Hypoglycemia Heparin Sodium (Porcine) (Heparin 5,000 Unit/Ml Vial) 5,000 unit SQ Q12 [facility] Last Admin: 11/19/20 08:28 Dose: 5,000 unit Documented by: Heparin Sodium (Porcine) (Heparin Flush 10 Units/Ml 5 Ml Syringe) 2 ml IV Q12 [facility] Last Admin: 11/19/20 08:28 Dose: 2 ml Documented by: Hydralazine HCl (Hydralazine 20 Mg/Ml Vial) 10 mg IV Q4-6HP PRN PRN Reason: Hypertension Magnesium Sulfate (Magnesium Sulfate) 2 gm in 50 mls @ 50 mls/hr IV UD PRN PRN Reason: MG = or < 1.7 Last Infusion: 11/17/20 18:37 Dose: Infused Documented by: Acetaminophen (Ofirmev) 1,000 mg in 100 mls @ 200 mls/hr IV Q6HP PRN PRN Reason: Per Pain Protocol/Fever > 101 Insulin Glargine (Insulin Glargine, Human 1 Unit/0.01 Ml) 10 unit SQ DAILY [facility] Last Admin: 11/19/20 08:29 Dose: 10 units Documented by: Insulin Human Lispro (Insulin Lispro 1 Unit/0.01 Ml Unit) 0 unit SQ ACHS [facility]; Protocol Last Admin: 11/19/20 11:41 Dose: Not Given Documented by: Iron Carb/Multivit/[place]/Folic Acid (Multivit,Ther Iron,Ca,Fa & Min 1 Tablet) 1 tab PO DAILY [facility] Last Admin: 11/19/20 08:30 Dose: 1 tab Documented by: Lisinopril (Lisinopril 5 Mg Tablet) 5 mg PO DAILY [facility] Last Admin: 11/19/20 08:30 Dose: 5 mg Documented by: Melatonin (Melatonin 3 Mg Tablet) 3 mg PO HSP PRN PRN Reason: Insomnia Last Admin: 11/18/20 20:49 Dose: 3 mg Documented by: Metformin HCl (Metformin 500 Mg Tab.Xl.24h) 500 mg PO BIDCC [facility] Last Admin: 11/19/20 08:30 Dose: 500 mg Documented by: Mupirocin (Mupirocin Oint 2% 22gm) 1 dose TOPICAL DAILY [facility] Last Admin: 11/19/20 08:30 Dose: 1 dose Documented by: Naloxone HCl (Naloxone Hcl 0.4 Mg/Ml Vial) 0.1 mg IV Q2MIN PRN PRN Reason: Opiate Reversal Ondansetron HCl (Ondansetron 4 Mg Odt Tablet) 4 mg SL Q4-6HP PRN; Protocol PRN Reason: Nausea And Vomiting Ondansetron HCl (Ondansetron 4 Mg/2 Ml Vial) 4 mg IV Q4-6HP PRN; Protocol PRN Reason: Nausea And Vomiting Polyethylene Glycol (Polyethylene Glycol 3350 17 Gm Packet) 17 gm PO DAILYP PRN PRN Reason: Constipation Potassium Chloride (Potassium Chloride 20 Meq Packet) 40 meq PO DAILYP PRN PRN Reason: K+ < 3.5 Last Admin: 11/13/20 08:37 Dose: 40 meq Documented by: Senna/Docusate Sodium (Sennosides/Docusate Sodium 1 Tab Tablet) 1 tab PO HS [facility] Last Admin: 11/18/20 20:42 Dose: 1 tab Documented by: Sitagliptin Phosphate (Sitagliptin 100 Mg Tablet) 100 mg PO DAILY [facility] Last Admin: 11/19/20 08:30 Dose: 100 mg Documented by: Sodium Chloride (0.9 % Sodium Chloride 10 Ml Syringe) 10 ml IV Q8 [facility] Last Admin: 11/19/20 13:57 Dose: 10 ml Documented by: Sodium Chloride (0.9 % Sodium Chloride 10 Ml Syringe) 10 ml IV Q12 [facility] Last Admin: 11/19/20 08:29 Dose: 10 ml Documented by: Thiamine HCl (Thiamine 100 Mg Tablet) 100 mg PO DAILY [facility] Last Admin: 11/19/20 08:30 Dose: 100 mg Documented by: A/P Narrative A/P Narrative: Assessment: 55 year old female with diabetes mellitus who is currently homeless admitted for severe sepsis from right #1 toe osteomyelitis and right foot cellulitis. She was treated with antibiotics, had a toe amputation on 11/17/20. Sepsis resolved with treatment. The patient is now awaiting placement. *Diabetic right foot cellulitis and great to osteo: s/p amputation (11/17) -WC with Strep B and MSSA *severe sepsis with endorgan dysfunction: resolved *Medication noncompliance: has been off meds for months *CKD II: *Anemia, likely chronic: *Hyponatremia/kalemia/mag: improved *DM, Poorly controlled diabetes. Has not been on her medications for months. -A1c 9.7 *Self-care deficit/homelessness: *Transaminitis: 2/2 fatty liver, improved Plan: -two weeks IV Abx from amputation (finish on 11/30/2020) -on cefazolin -Ata/wound care following -Electrolyte replacement -SSI, started on metformin -restart home lisinopril -will need scripts for home med upon d/c -PT OT/case management consultation for safe discharge plan, awaiting placement -ppx: heparin DNR Time Spent With Patient Time: Total time spent is greater than 50% in coordination of care (as documented) at patient's floor/unit and/or counseling patient: QUALITY VTE Deep Vein Thrombosis/Pulmonary Embolism Present on Admission: No
[2020-11-19] MEDS: MELATONIN 3 MG TABLET PO PRN (21:49)
[2020-11-19] MEDS: SENNOSIDES/DOCUSATE SODIUM 1 TAB TABLET PO SCH (22:25)
[2020-11-20] MEDS: ACETAMINOPHEN 325 MG TABLET PO PRN (04:02)
[2020-11-20] MEDS: ceFAZolin 1 GM VIAL IV SCH (05:58)
[2020-11-20] MEDS: 0.9 % SODIUM CHLORIDE 10 ML SYRINGE IV SCH ×2 (05:58→09:27)
[2020-11-20] MEDS: INSULIN LISPRO 1 UNIT/0.01 ML UNIT SQ SCH (07:08)
[2020-11-20] MEDS: metFORMIN 500 MG TAB.XL.24H PO SCH (07:12)
[2020-11-20 08:02] LABS: C-Reactive Protein 4.1 mg/dL (0.03-0.80); Phosphorous 3.1 mg/dL (2.5-4.5)
[2020-11-20 08:03] LABS: Blood Urea Nitrogen 11 mg/dL (6-20); Calcium 8.5 mg/dL (8.6-10.4); Carbon Dioxide 30 mmol/L (22-30); Chloride 103 mmol/L (96-108); Glomerular Filtration Rate 98; Glucose 84 mg/dL (70-105)
[2020-11-20] MEDS: MULTIVIT,THER IRON,CA,FA & MIN 1 TABLET PO SCH (09:25)
[2020-11-20] MEDS: sitaGLIPtin 100 MG TABLET PO SCH (09:25)
[2020-11-20] MEDS: THIAMINE 100 MG TABLET PO SCH (09:25)
[2020-11-20] MEDS: HYDROcodone/APAP 10/325MG TABLET PO PRN ×2 (09:25→10:01)
[2020-11-20] MEDS: LISINOPRIL 5 MG TABLET PO SCH (09:25)
[2020-11-20] MEDS: MUPIROCIN OINT 2% 22GM TOPICAL SCH (09:26)
[2020-11-20] MEDS: HEPARIN 5,000 UNIT/ML VIAL SQ SCH (09:26)
[2020-11-20] MEDS: INSULIN GLARGINE, HUMAN 1 UNIT/0.01 ML SQ SCH (09:27)
--- NOTE | 2020-11-20 10:13 | Discharge Summary ---
Discharge Provider Provider Patient information: Note initiated : 11/20/20 at 10:09 am Service Date, if different from initiated Date: [] Patient: Patricia Guerra 55 y/o F admitted on 11/13/20 for Diabetic Right Foot Ulcer. Chief Complaint: [] Date of admission: 11/13/20 02:24 Discharge date: 11/20/20 Consults: 11/13/20 06:08 Consult to Physician [CONS] Routine Comment: Consulting Provider: Chuckie Berumen Reason For Exam: Physician to Consult 11/13/20 07:14 Consult to Physician [CONS] Routine Comment: Consulting Provider: Castillo Monzon Reason For Exam: Physician to Consult 11/16/20 09:53 Consult to Physician [CONS] Routine Comment: Second Opinion Consulting Provider: Castillo Monzon Reason For Exam: Physician to Consult Discharge Meds Discharge Medications Home Medications acetaminophen 650 mg PO TID PRN 11/16/20 [History Confirmed 11/16/20 Last Taken Unknown] albuterol 8.5 g PO Q4-8HP PRN 11/16/20 [History Confirmed 11/16/20 Last Taken Unknown] dextromethorphan-guaifenesin [Adult Tussin DM] 5 - 10 ml PO Q4-6HP PRN 11/16/20 [History Confirmed 11/16/20 Last Taken Unknown] glipizide 5 mg PO QDAY 11/16/20 [History Confirmed 11/16/20 Last Taken Unknown] ipratropium bromide 2 spray INTRANASAL TID 11/16/20 [History Confirmed 11/16/20 Last Taken Unknown] isopropyl alcohol 1 pad TOPICAL QDAY PRN 11/16/20 [History Confirmed 11/16/20 Last Taken Unknown] lancing device 11/16/20 [History Confirmed 11/16/20 Last Taken Unknown] lisinopril 2.5 mg PO QDAY 11/16/20 [History Confirmed 11/16/20 Last Taken Unknown] metformin 1,000 mg PO BID 11/16/20 [History Confirmed 11/16/20 Last Taken Unknown] cephalexin 500 mg PO BID 7 Days #14 cap 11/20/20 [Rx Last Taken Unknown] COURSE Hospital Course Hospital course: Ms. Guerra is a 55 year old F known diabetic who is currently homeless and living in a tent. Patient presented to [facility] ER for worsening right foot and big toe pain after she stepped on a glass sometime ago. She does not have access to protective footwear and moves around in flip-flops. She feels she stubbed on something that started the pain and swelling of the feet. She is known diabetic but poorly controlled and does not take any medications. She follows up with [facility] intermitt[facility]. Over the last couple of days pain and swelling has remarkably worsened with bluish discoloration of toe significance redness involving the foot. Initial work-up in the ER was consistent with severely swollen right great toe along with open wound on the dorsal aspect, sodium 126, potassium 3, creatinine 1.4, blood sugar 203 and a white count of 18.1. Patient was started on Rocephin after cultures were drawn. Due to lack of availability of beds hospitalist service was consulted at [facility] for transfer and further management. I received a phone description as above from Jonathan Bender ER physician at [facility]. Patient received at [facility] in stable state. At the time of my evaluation patient is alert and oriented. She endorses history as above. She denies fever, diarrhea, shaking chills, headache, photophobia. She extremely unkempt and appears disheveled. 11/[address] Berumen. Patient has no overnight event or new complaints. She is homeless and ran out of her medications months ago and has not been on any for quite a while. Nurse attempting to obtain old medication list. Sounds like she was on insulin. 11/15 No overnight or new complaints. MRI with osteo in the foot diffuse cellulitis. 11/16 Feeling well. No overnight or new complaints. Low mag will replace. 11/17 Patient had right great toe amputation yesterday. No overnight event or new complaints. 11/18 Patient doing well postop no overnight events. She does have some nausea yesterday but okay today. 11/19 Doing well again no overnight event or new complaints. Waiting for placement. 11/20 Discharged to SNF, change to Keflex to complete 14 days of antibiotic therapy. Follow up with infectious disease and wound care clinic. Physical exam Head: Atraumatic, normal inspection. Eyes: normal appearance, no scleral icterus. Neck: full ROM Respiratory: no respiratory distress. Cardiovascular: normal rate and rhythm, S1, S2. GI/Abdominal: soft, nontender, no guarding. Extremities: left foot w/ toe amputation, appears to be healing well Neurological: CN II-XII intact, intact motor, intact sensation. Psychiatric: normal mood. Skin: left foot cellulitis improving Discharge diagnosis: Osteomyelitis of left #1 toe Secondary discharge diagnosis: Cellulitis of left foot Time Spent with Patient Time attestation: Total time spent providing and/or coordinating discharge services: EXAM Constitutional Vitals: Temp Pulse Resp BP Pulse Ox 97.9 F 97 H 16 144/92 98 11/20/20 07:45 11/20/20 07:45 11/20/20 07:45 11/20/20 07:45 11/20/20 07:45 Discharge Data Data Completed and Pending Labs on day of discharge: Labs from last 24 hours 11/20/20 11/20/20 05:00 05:00 Sodium 136 Potassium 4.0 Chloride 103 Carbon Dioxide 30 Anion Gap 3.0 L BUN 11 Creatinine 0.7 GFR Calculation 98 Glucose 84 Calcium 8.5 L Phosphorus 3.1 C-Reactive Protein 4.10 H Preliminary micro results at discharge 11/16/20 17:00 Anaerobic Culture - Preliminary Toe - Not Given 11/16/20 16:45 Anaerobic Culture - Preliminary Toe - Not Given Discharge Plan Patient/Caregiver Discharge Instructions Activity: as per physical therapy Diet: Consistent Carbohydrate Activity Restrictions/Additional Instructions: heel weight bearing on left Prescriptions: New cephalexin 500 mg capsule 500 mg PO BID 7 Days Qty: 14 RF: 0 Continued metformin 500 mg Tablet 1,000 mg PO BID RF: 0 acetaminophen 325 mg Tablet 650 mg PO TID PRN (Reason: Pain) RF: 0 dextromethorphan-guaifenesin [Adult Tussin DM] 10-100 mg/5 mL Syrup 5 - 10 ml PO Q4-6HP PRN (Reason: Cough) RF: 0 lisinopril 2.5 mg Tablet 2.5 mg PO QDAY RF: 0 glipizide 5 mg Tablet 5 mg PO QDAY RF: 0 (DME) lancing device Misc MISCELLANEOUS RF: 0 albuterol 8.5 g PO Q4-8HP PRN (Reason: Shortness Of Breath) RF: 0 ipratropium bromide 2 spray intranasal TID RF: 0 isopropyl alcohol 1 pad topical QDAY PRN (Reason: Disinfection) RF: 0 Follow Up Plan Follow up with: Chuckie Berumen MD [Physician] - (follow up at clinic 1 week after d/c) Harjit Belle MD [Physician] - Patient Disposition: Xfer SNF Rehab Potential: Fair I certify that the patient requires SNF services: Yes Overall status at discharge: patient is progressing back to baseline Discharge Orders: Discharge Order (Routine); Ordered 11/20/20 Ordered By: Jos CHAIDEZ VTE Deep Vein Thrombosis/Pulmonary Embolism Present on Admission: No
--- NOTE | 2020-11-26 14:16 | Surgical Pathology Report ---
Histology Microscopic Diagnosis Specimen A- TOE, RIGHT GREAT, AMPUTATION: --- GANGRENOUS EPIDERMAL ULCERATION WITH EROSION OF UNDERLYING BONE AND ACUTE OSTEOMYELITIS. --- BONY MARGIN APPEARS FREE OF ACUTE INFLAMMATION. (ACP:sln) Procedural Impression Necrotic toe, rule out osteomyelitis. Gross Description Received in formalin labeled right great toe, is a great toe that is 6.2 x 3.5 x 3.3 cm. The skin margin is 0.6 cm from the bone margin which is inked black. The nail bed is intact and the nail is up to 0.6 cm thick with peach colored nail yoruba. There is an area of ulceration starting approximately at 0.3 cm from the nail bed and extending to the skin margin that is 3.1 x 2.5 cm. A account development representative section is trisected and is totally submitted in three cassettes. (SCB:landen) Electronically Signed Florencio Miranda MD, FCAP Electronically Signed 11/20/2020 17:32
== END 2020-11-20 11:30 | DRG 854 ==
LOC: MEDSUR → OBSVTOIN 02:24 → MEDSUR 08:01
PROVIDERS: ADMIT Internal Medicine; ATTEND Internal Medicine